=== PATIENT | male | born 1990 | race Caucasian/White ===

== ENCOUNTER 2019-12-19 16:55 | Emergency (ER) | payer MEDICARE, MEDICAID, SELFPAY ==
[2019-12-19 17:34] VITALS: BP 135/90; PULSE 83; RESP 18; TEMP 36.8; O2SAT 95; BMI 27.7
[2019-12-19 17:37] VITALS: BP 118/87; PULSE 87; RESP 18; TEMP 36.9; O2SAT 99
--- NOTE | 2019-12-19 17:41 | ED.PSYCH ---
HPI - Psych General Chief Complaint: Psychiatric Symptoms <Adriano Bucio NP - Last Filed: 12/20/19 02:04> Stated Complaint: HEROIN OVERDOSE <Adriano Bucio NP - Last Filed: 12/20/19 02:04> Time Seen by Provider: 12/19/19 17:41 <Adriano Bucio NP - Last Filed: 12/20/19 02:04> Source: patient and EMS <Adriano Bucio NP - Last Filed: 12/20/19 02:04> Mode of arrival: EMS <Adriano Bucio NP - Last Filed: 12/20/19 02:04> Limitations: no limitations <Adriano Bucio NP - Last Filed: 12/20/19 02:04> History of Present Illness HPI Narrative: 29-year-old male with past medical history significant for anxiety disorder, depressive disorder, bipolar disorder, MS and substance abuse who reports to me that he will use IV heroin once every several weeks to a month for recreational purposes as well as cocaine may be every 6 months presents today via EMS on a [address] with EMS and PD from home with complaint of overdose on heroin. Per crisis counselor with PD apparently patient had some verbal altercations and made suicidal statements throughout the day to the family and then subsequently used heroin and OD'd concerned that he may have done this intentionally. Patient upon arrival openly admits that he uses heroin occasionally eats for recreational purposes and to get high and it was not a suicidal attempt. He on arrival offers no medical complaints. He was given 4 mg of Narcan. He is nontoxic appearing. Vitals are stable. Offers no medical complaints. <Adriano Bucio NP - Last Filed: 12/20/19 02:04> MD complaint: suicidal ideation <Adriano Bucio NP - Last Filed: 12/20/19 02:04> Associated psychiatric symptoms: none <Adriano Bucio NP - Last Filed: 12/20/19 02:04> Associated symptoms: denies other symptoms <Adriano Bucio NP - Last Filed: 12/20/19 02:04> Treatments prior to arrival: placed on mental health hold and other ( Given Narcan by PD/EMS) <Adriano Bucio NP - Last Filed: 12/20/19 02:04> Related Data Home Medications: Home Medications Medication Instructions Recorded Confirmed albuterol sulfate [ProAir HFA] 2 puff PO QID 12/19/19 12/19/19 clonazepam 1 tab PO BID 12/19/19 12/19/19 gabapentin 2 tab PO TID 12/19/19 12/19/19 lithium carbonate 2 tab PO DAILY 12/19/19 12/19/19 lorazepam 1 tab PO TID PRN 12/19/19 12/19/19 venlafaxine 1 cap PO DAILY 12/19/19 12/19/19 venlafaxine 1 cap PO DAILY 12/19/19 12/19/19 <Adriano Bucio NP - Last Filed: 12/20/19 02:04> Allergies/Adverse Reactions: Allergies Allergy/AdvReac Type Severity Reaction Status Date / Time amoxicillin [AMOXICILLIN] Allergy Mild HIVES Verified 12/19/19 17:37 Penicillins [PENICILLINS] Allergy Mild HIVES Verified 12/19/19 17:37 <Adriano Bucio NP - Last Filed: 12/20/19 02:04> Review of Systems Review of Systems: Constitutional: No Weight loss, No Fever, No Chills, No Night Sweats, No Fatigue, No Malaise ENT/Mouth: No Hearing loss, No Ear Pain, No Nasal Congestion, No Sinus Pain, No Hoarseness, No sore throat, No Rhinorrhea, No Swallowing Difficulty Eyes: No Eye Pain, No Swelling, No Redness, No Foreign Body, No Discharge, No Vision Changes Cardiovascular: No Chest Pain, No SOB, No Dyspnea on Exertion, No Orthopnea, No Edema, No Palpitations Respiratory: No Cough, No Sputum, No Wheezing, No Smoke Exposure, No Dyspnea Gastrointestinal: No Nausea, No Vomiting, No Diarrhea, No Constipation, No abdominal Pain, No Hematochezia, No Melena Genitourinary: no irregular bleeding, No Dysuria, No Urinary Frequency, No Hematuria, No Urinary Incontinence, No Urgency, No Flank Pain, No Urinary Flow Changes, No Hesitancy Musculoskeletal: No joint pain, No Myalgias, No Joint Swelling Skin: No Skin Lesions, No rash Neuro: No Weakness, No Numbness, No Paresthesias, No Loss of Consciousness, No Dizziness, No Headache Psych: No Anxiety/Panic, No Depression, No SI/HI/AH/VH---but section 12 and apparently made statements to family Heme/Lymph: No Bruising, No Bleeding,No Lymphadenopathy Endocrine: No Polyuria, No Polydipsia, No Temperature Intolerance <Adriano Bucio NP - Last Filed: 12/20/19 02:04> Yes all other systems are reviewed and are negative <Adriano Bucio NP - Last Filed: 12/20/19 02:04> FOR[facility], [facility] Past Medical History Attestation statement: The following information was validated with the patient. <Adriano Bucio NP - Last Filed: 12/20/19 02:04> Medical History: Medical History (Updated 12/19/19 @ 17:36 by Juanita Lucas RN) Asthma Multiple sclerosis <Adriano Bucio NP - Last Filed: 12/20/19 02:04> Social History Social History: Social History Alcohol intake: unknown Smoking Status: Unknown if ever smoked Use of substances other than those prescribed or required for medical reasons: Yes Substance Use Type: Crack/Cocaine, Marijuana and Opiates Substance Use Frequency: Daily Last Used Substance: Just Prior to Admission Any prior treatment program specific to substance use: Yes (Narcan) Advance Directives: No Advance Directives Information Provided: Yes <Adriano Bucio NP - Last Filed: 12/20/19 02:04> Physical Exam Vital Signs: Vital Signs: Vital Signs Temp Pulse Resp BP Pulse Ox 12/19/19 17:37 98.4 F 87 18 118/87 99 12/19/19 17:34 98.3 F 83 18 135/90 H 95 Body Mass Index 27.7 Reviewed <Adriano Bucio NP - Last Filed: 12/20/19 02:04> Vital Signs: Vital Signs Temp Pulse Resp BP Pulse Ox 12/19/19 17:37 98.4 F 87 18 118/87 99 12/19/19 17:34 98.3 F 83 18 135/90 H 95 Body Mass Index 27.7 <LIS Engel - Last Filed: 12/20/19 08:27> Const: General: cooperative and healthy appearing; No acute distress or intoxicated appearing <Adriano Bucio NP - Last Filed: 12/20/19 02:04> Nutritional Appearance: average body habitus <Adriano Bucio NP - Last Filed: 12/20/19 02:04> Orientation/consciousness: patient oriented x3 <[facility] Last Filed: 12/20/19 02:04> HENMT: Head: Yes normal to inspection <[facility] Last Filed: 12/20/19 02:04> Ears: hearing grossly normal bilaterally <[facility] Last Filed: 12/20/19 02:04> Eyes: General: appearance normal, both eyes and all related structures <[facility] Last Filed: 12/20/19 02:04> Visual Maria: normal visual maria by confrontation <[facility] Last Filed: 12/20/19 02:04> Neck: Neck: Yes normal visual inspection, No positive Brudzinski's sign, No positive Kernig's sign and No tender <[facility] Last Filed: 12/20/19 02:04> Thyroid: Thyroid normal <[facility] Last Filed: 12/20/19 02:04> Chest: Chest palpation & inspection: normal inspection of the chest <[facility] Last Filed: 12/20/19 02:04> Resp: Effort & Inspection: normal respiratory effort <[facility] Last Filed: 12/20/19 02:04> Cardio: Jugular venous distension: no JVD <[facility] Last Filed: 12/20/19 02:04> GI: Inspection: Yes normal to inspection <[facility] Last Filed: 12/20/19 02:04> Percussion: Yes normal to percussion <[facility] Last Filed: 12/20/19 02:04> Auscultation: normal bowel sounds <[facility] Last Filed: 12/20/19 02:04> : General: Yes no CVA tenderness <[facility] Last Filed: 12/20/19 02:04> Back/Spine/Pelvis: Back: no CVA tenderness <[facility] Last Filed: 12/20/19 02:04> Skin: General skin exam: no rashes or lesions noted <[facility] [employer] - Last Filed: 12/20/19 02:04> Neuro: General: patient oriented x3 <Adriano Bucio NP - Last Filed: 12/20/19 02:04> Extrem: General: Yes normal to inspection <Adriano Bucio NP - Last Filed: 12/20/19 02:04> Course Course Course Narrative: Labs show leukocytosis 15.4 likely from the OD/polysubstance otherwise no signs or symptoms of infectious pathology. Urine tox screen positive for polysubstance including opiates, benzos, cocaine and marijuana. Has remained calm cooperative here. Offers no complaints. Eating drinking. At this time medically clear for psychiatric evaluation. <Adriano Bucio NP - Last Filed: 12/20/19 02:04> patient presently not in any distress. Patient is awaiting [facility] evaluation. Time 08:26 <LIS Engel - Last Filed: 12/20/19 08:27> Reevaluation(s) Reevaluation #1: [id number] Sign-out night team pending psychiatric evaluation. <Adriano Bucio NP - Last Filed: 12/20/19 02:04> MDM - Psych MDM Narrative Medical decision making narrative: In review 29-year-old male with above history including anxiety, depression, bipolar disorder, MS with polysubstance use presents via EMS with overdose question intentional versus recreational use he denies any SI or HI to me states this was strictly a recreation used to get high. He does come with EMS/ [facility] on [address] as he apparently been making suicidal statements to the family. He was hyperverbal and verbally assaultive toward staff upon arrival however he is much more calmer and redirected upon my interview. Agreeable with labs and psychiatric consultation. <Adriano Bucio NP - Last Filed: 12/20/19 02:04> Differential Diagnosis Differential diagnosis: Likely acute psychosis, suicidal ideation, bipolar disorder, depression, drug-induced psychotic disorder, acute anxiety, overdose and mood disorder; Unlikely post-traumatic stress disorder, opposition defined disorder, attention deficit disorder, attention deficit hyperactivity disorder, autism, substance abuse and schizoaffective disorder <Adriano Bucio NP - Last Filed: 12/20/19 02:04> Restraints Face to Face Assessment: Face to Face Assessment: Current Situation: After assessment of the patient, a review of the pertinent medical record and a discussion with nursing staff, I feel the patient requires a restrain intervention. Reaction To: [] Medical Condition: [] Behavioral State: [] Continued Need: [] <Adriano Bucio NP - Last Filed: 12/20/19 02:04> Lab Data Result diagrams: : 12/19/19 19:31 12/19/19 19:32 <Adriano Bucio NP - Last Filed: 12/20/19 02:04> Labs: Lab Results 12/19/19 12/19/19 12/19/19 Range/Units 19:31 19:32 19:32 WBC 15.4 H (4.8-10.8) X10*3/uL RBC 4.90 (4.60-5.80) X10*6/uL Hgb 13.4 L (14.0-18.0) g/dl Hct 42.2 (42-52) % MCV 86.1 (80-98) fL MCH 27.3 (27.0-33.0) pg MCHC 31.8 (31.0-36.0) g/dl RDW 14.3 (11.0-16.0) % Plt Count 372 (160-400) X10*3/uL MPV 10.9 (9.4-12.4) fL Immature Gran % (Auto) 0.3 (0.0-0.4) % Neut % (Auto) 82.5 H (45-73) % Lymph % (Auto) 8.9 L (20-40) % [place] % (Auto) 6.8 (2-11) % Eos % (Auto) 1.4 (0-4) % Baso % (Auto) 0.1 (0-2) % Lymph # (Auto) 1.4 (1.2-4.9) X10*3/uL [place] # (Auto) 1.1 (0.1-1.2) X10*3/uL Eos # (Auto) 0.2 (0.0-0.4) X10*3/uL Baso # (Auto) 0.0 (0.0-0.2) X10*3/uL Abs Immat Gran (auto) 0.05 H (0.00-0.03) X10*3/uL Absolute Neuts (auto) 12.7 H (2.0-8.3) X10*3/uL Absolute Nucleated RBC 0.000 (0.0-0.012) X10*3/uL Nucleated RBC % (auto) 0.0 (0.0-0.2) /100WBC Sodium 141 (135-145) mmol/L Potassium 4.0 (3.3-5.1) mmol/l Chloride 107 (96-108) mmol/L Carbon Dioxide 25 (22-29) mmol/L Anion Gap 13 (12-20) BUN 7 L (9-16) mg/dL Creatinine 0.87 (0.5-1.4) mg/dL Estim Creat Clear Calc 139.0 Estimated GFR > 60 Random Glucose 101 (60-115) mg/dL Calcium 9.0 (8.4-10.2) mg/dL Total Bilirubin 0.6 (0.0-1.0) mg/dL AST 18 (5-37) U/L ALT 18 (0-40) U/L Alkaline Phosphatase 70 (39-117) U/L Total Protein 6.9 (6.5-8.0) g/dL Albumin 4.7 (3.5-5.0) g/dL Urine Color Urine Appearance Urine pH (5.0-8.0) Ur Specific [place] (1.005-1.025) Urine Protein (NEG-TRACE) MG/DL Urine Glucose (UA) (NEG) MG/DL Urine Ketones (NEG) MG/DL Urine Blood (NEG) Urine Nitrite (NEG) Ur Leukocyte Esterase (NEG) Urine RBC (0) /HPF Urine WBC (0-4) /HPF Ur Squamous Epith Cells /LPF Urine Bacteria /LPF Urine Opiates Screen (Not Detect) Ur Barbiturates Screen (Not Detect) Ur Phencyclidine Scrn (Not Detect) Ur Amphetamines Screen (Not Detect) U Benzodiazepines Scrn (Not Detect) [place] (0.60-1.20) mmol/L Urine Cocaine Screen (Not Detect) U Marijuana (THC) Screen (Not Detect) Ethyl Alcohol < 10 mg/dL 12/19/19 12/19/19 12/19/19 Range/Units 19:32 19:32 19:32 WBC (4.8-10.8) X10*3/uL RBC (4.60-5.80) X10*6/uL Hgb (14.0-18.0) g/dl Hct (42-52) % MCV (80-98) fL MCH (27.0-33.0) pg MCHC (31.0-36.0) g/dl RDW (11.0-16.0) % Plt Count (160-400) X10*3/uL MPV (9.4-12.4) fL Immature Gran % (Auto) (0.0-0.4) % Neut % (Auto) (45-73) % Lymph % (Auto) (20-40) % [place] % (Auto) (2-11) % Eos % (Auto) (0-4) % Baso % (Auto) (0-2) % Lymph # (Auto) (1.2-4.9) X10*3/uL [place] # (Auto) (0.1-1.2) X10*3/uL Eos # (Auto) (0.0-0.4) X10*3/uL Baso # (Auto) (0.0-0.2) X10*3/uL Abs Immat Gran (auto) (0.00-0.03) X10*3/uL Absolute Neuts (auto) (2.0-8.3) X10*3/uL Absolute Nucleated RBC (0.0-0.012) X10*3/uL Nucleated RBC % (auto) (0.0-0.2) /100WBC Sodium (135-145) mmol/L Potassium (3.3-5.1) mmol/l Chloride (96-108) mmol/L Carbon Dioxide (22-29) mmol/L Anion Gap (12-20) BUN (9-16) mg/dL Creatinine (0.5-1.4) mg/dL Estim Creat Clear Calc Estimated GFR Random Glucose (60-115) mg/dL Calcium (8.4-10.2) mg/dL Total Bilirubin (0.0-1.0) mg/dL AST (5-37) U/L ALT (0-40) U/L Alkaline Phosphatase (39-117) U/L Total Protein (6.5-8.0) g/dL Albumin (3.5-5.0) g/dL Urine Color YELLOW Urine Appearance CLEAR Urine pH 6.5 (5.0-8.0) Ur Specific [place] 1.015 (1.005-1.025) Urine Protein 1+ H (NEG-TRACE) MG/DL Urine Glucose (UA) NEG (NEG) MG/DL Urine Ketones NEG (NEG) MG/DL Urine Blood NEG (NEG) Urine Nitrite NEG (NEG) Ur Leukocyte Esterase NEG (NEG) Urine RBC 0 (0) /HPF Urine WBC 0 (0-4) /HPF Ur Squamous Epith Cells 1+ /LPF Urine Bacteria 1+ /LPF Urine Opiates Screen POSITIVE H (Not Detect) Ur Barbiturates Screen Not Detected (Not Detect) Ur Phencyclidine Scrn Not Detected (Not Detect) Ur Amphetamines Screen Not Detected (Not Detect) U Benzodiazepines Scrn POSITIVE H (Not Detect) [place] 0.41 L (0.60-1.20) mmol/L Urine Cocaine Screen POSITIVE H (Not Detect) U Marijuana (THC) Screen POSITIVE H (Not Detect) Ethyl Alcohol mg/dL <Adriano Bucio NP - Last Filed: 12/20/19 02:04> Lab Results 12/19/19 12/19/19 12/19/19 Range/Units 19:31 19:32 19:32 WBC 15.4 H (4.8-10.8) X10*3/uL RBC 4.90 (4.60-5.80) X10*6/uL Hgb 13.4 L (14.0-18.0) g/dl Hct 42.2 (42-52) % MCV 86.1 (80-98) fL MCH 27.3 (27.0-33.0) pg MCHC 31.8 (31.0-36.0) g/dl RDW 14.3 (11.0-16.0) % Plt Count 372 (160-400) X10*3/uL MPV 10.9 (9.4-12.4) fL Immature Gran % (Auto) 0.3 (0.0-0.4) % Neut % (Auto) 82.5 H (45-73) % Lymph % (Auto) 8.9 L (20-40) % [place] % (Auto) 6.8 (2-11) % Eos % (Auto) 1.4 (0-4) % Baso % (Auto) 0.1 (0-2) % Lymph # (Auto) 1.4 (1.2-4.9) X10*3/uL [place] # (Auto) 1.1 (0.1-1.2) X10*3/uL Eos # (Auto) 0.2 (0.0-0.4) X10*3/uL Baso # (Auto) 0.0 (0.0-0.2) X10*3/uL Abs Immat Gran (auto) 0.05 H (0.00-0.03) X10*3/uL Absolute Neuts (auto) 12.7 H (2.0-8.3) X10*3/uL Absolute Nucleated RBC 0.000 (0.0-0.012) X10*3/uL Nucleated RBC % (auto) 0.0 (0.0-0.2) /100WBC Sodium 141 (135-145) mmol/L Potassium 4.0 (3.3-5.1) mmol/l Chloride 107 (96-108) mmol/L Carbon Dioxide 25 (22-29) mmol/L Anion Gap 13 (12-20) BUN 7 L (9-16) mg/dL Creatinine 0.87 (0.5-1.4) mg/dL Estim Creat Clear Calc 139.0 Estimated GFR > 60 Random Glucose 101 (60-115) mg/dL Calcium 9.0 (8.4-10.2) mg/dL Total Bilirubin 0.6 (0.0-1.0) mg/dL AST 18 (5-37) U/L ALT 18 (0-40) U/L Alkaline Phosphatase 70 (39-117) U/L Total Protein 6.9 (6.5-8.0) g/dL Albumin 4.7 (3.5-5.0) g/dL Urine Color Urine Appearance Urine pH (5.0-8.0) Ur Specific [place] (1.005-1.025) Urine Protein (NEG-TRACE) MG/DL Urine Glucose (UA) (NEG) MG/DL Urine Ketones (NEG) MG/DL Urine Blood (NEG) Urine Nitrite (NEG) Ur Leukocyte Esterase (NEG) Urine RBC (0) /HPF Urine WBC (0-4) /HPF Ur Squamous Epith Cells /LPF Urine Bacteria /LPF Urine Opiates Screen (Not Detect) Ur Barbiturates Screen (Not Detect) Ur Phencyclidine Scrn (Not Detect) Ur Amphetamines Screen (Not Detect) U Benzodiazepines Scrn (Not Detect) [place] (0.60-1.20) mmol/L Urine Cocaine Screen (Not Detect) U Marijuana (THC) Screen (Not Detect) Ethyl Alcohol < 10 mg/dL 12/19/19 12/19/19 12/19/19 Range/Units 19:32 19:32 19:32 WBC (4.8-10.8) X10*3/uL RBC (4.60-5.80) X10*6/uL Hgb (14.0-18.0) g/dl Hct (42-52) % MCV (80-98) fL MCH (27.0-33.0) pg MCHC (31.0-36.0) g/dl RDW (11.0-16.0) % Plt Count (160-400) X10*3/uL MPV (9.4-12.4) fL Immature Gran % (Auto) (0.0-0.4) % Neut % (Auto) (45-73) % Lymph % (Auto) (20-40) % [place] % (Auto) (2-11) % Eos % (Auto) (0-4) % Baso % (Auto) (0-2) % Lymph # (Auto) (1.2-4.9) X10*3/uL [place] # (Auto) (0.1-1.2) X10*3/uL Eos # (Auto) (0.0-0.4) X10*3/uL Baso # (Auto) (0.0-0.2) X10*3/uL Abs Immat Gran (auto) (0.00-0.03) X10*3/uL Absolute Neuts (auto) (2.0-8.3) X10*3/uL Absolute Nucleated RBC (0.0-0.012) X10*3/uL Nucleated RBC % (auto) (0.0-0.2) /100WBC Sodium (135-145) mmol/L Potassium (3.3-5.1) mmol/l Chloride (96-108) mmol/L Carbon Dioxide (22-29) mmol/L Anion Gap (12-20) BUN (9-16) mg/dL Creatinine (0.5-1.4) mg/dL Estim Creat Clear Calc Estimated GFR Random Glucose (60-115) mg/dL Calcium (8.4-10.2) mg/dL Total Bilirubin (0.0-1.0) mg/dL AST (5-37) U/L ALT (0-40) U/L Alkaline Phosphatase (39-117) U/L Total Protein (6.5-8.0) g/dL Albumin (3.5-5.0) g/dL Urine Color YELLOW Urine Appearance CLEAR Urine pH 6.5 (5.0-8.0) Ur Specific [place] 1.015 (1.005-1.025) Urine Protein 1+ H (NEG-TRACE) MG/DL Urine Glucose (UA) NEG (NEG) MG/DL Urine Ketones NEG (NEG) MG/DL Urine Blood NEG (NEG) Urine Nitrite NEG (NEG) Ur Leukocyte Esterase NEG (NEG) Urine RBC 0 (0) /HPF Urine WBC 0 (0-4) /HPF Ur Squamous Epith Cells 1+ /LPF Urine Bacteria 1+ /LPF Urine Opiates Screen POSITIVE H (Not Detect) Ur Barbiturates Screen Not Detected (Not Detect) Ur Phencyclidine Scrn Not Detected (Not Detect) Ur Amphetamines Screen Not Detected (Not Detect) U Benzodiazepines Scrn POSITIVE H (Not Detect) [place] 0.41 L (0.60-1.20) mmol/L Urine Cocaine Screen POSITIVE H (Not Detect) U Marijuana (THC) Screen POSITIVE H (Not Detect) Ethyl Alcohol mg/dL <LIS Engel - Last Filed: 12/20/19 08:27> Discharge Plan Discharge Prescriptions: No Action venlafaxine 75 mg capsule,extended release 24hr 1 cap PO DAILY RF: 0 gabapentin 600 mg tablet 2 tab PO TID RF: 0 clonazepam 1 mg tablet 1 tab PO BID RF: 0 venlafaxine 150 mg capsule,extended release 24hr 1 cap PO DAILY RF: 0 lithium carbonate 450 mg tablet extended release 2 tab PO DAILY RF: 0 lorazepam 1 mg tablet 1 tab PO TID PRN (Reason: anxiety) RF: 0 albuterol sulfate [ProAir HFA] 90 mcg/actuation HFA aerosol inhaler 2 puff PO QID RF: 0 <Adriano Bucio NP - Last Filed: 12/20/19 02:04>
--- NOTE | 2019-12-19 18:00 | ECG_ITS ---
Test Reason : OVERDOSE Blood Pressure : / mmHG Vent. Rate : 075 BPM Atrial Rate : 075 BPM P-R Int : 144 ms QRS Dur : 084 ms QT Int : 392 ms P-R-T Axes : 047 049 043 degrees QTc Int : 437 ms Normal sinus rhythm Early repolarization Normal ECG When compared with ECG of 08-MAR-2018 00:41, Nonspecific T wave abnormality no longer evident in Lateral leads Heart rate has decreased Referred By: Adriano Bucio Electronically Signed By:STANLEY LEBRON MD
--- NOTE | 2019-12-19 19:21 | PC.NURSE ---
PT TRIAGED AFTER [facility] GAVE 4MG NARCAN IN. PER FAMILY, PT MAKOING SI STATEMENTS ALL DAY TODAY. SECTION 12 COMPLETED BY [facility]. PT VERY ABRASIVE UPON ARRIVAL. EVENTUALLY REASSURED. AGREEABLE TO TREATMENT. LABS TO BE COLLECTED.
[2019-12-19 19:41] LABS: Glucose Urine UA NEG (NEG); Leukocyte Esterase Urine NEG (NEG); Nitrite Urine NEG (NEG); PH 6.5 (5.0-8.0); Specific Gravity - Urine 1.015 (1.005-1.025); Urine Blood NEG (NEG); Urine Ketones NEG (NEG); Urine Protein 1+ MG/DL (NEG-TRACE)
[2019-12-19 19:43] LABS: Appearance Urine CLEAR; Color Urine YELLOW
[2019-12-19 19:44] LABS: MANUAL DIFF FLAG NO
--- NOTE | 2019-12-19 19:45 | PC.NURSE ---
labs drawn by straight stick to lab. pt up to restroom with steady even gait for urine sample to lab. pt remains with sitter at bedside. pt awaiting for dispo to pod. Pt remains calm and cooperative in hallway. Awaiting pending orders.
[2019-12-19 19:46] LABS: Bacteria Urine 1+ /LPF; RBC Urine 0 /HPF (0); Squamous Epithelial Cell Urine 1+ /LPF; WBC Urine 0 /HPF (0-4)
[2019-12-19 19:46] LABS: Basophils Percent Auto 0.1 % (0-2); Eosinophils Absolute Auto 0.2 X10*3/uL (0.0-0.4); Eosinophils Percent Auto 1.4 % (0-4); Hematocrit 42.2 % (42-52); Hemoglobin 13.4 g/dl (14.0-18.0); Imm Gran Abs Auto 0.05 X10*3/uL (0.00-0.03); Imm Gran Pct Auto 0.3 % (0.0-0.4); Lymphocytes Absolute Auto 1.4 X10*3/uL (1.2-4.9); Lymphocytes Percent Auto 8.9 % (20-40); Mean Corpuscular HGB Conc 31.8 g/dl (31.0-36.0); Mean Corpuscular Hemoglobin 27.3 pg (27.0-33.0); Mean Corpuscular Volume 86.1 fL (80-98); Mean Platelet Volume 10.9 fL (9.4-12.4); Monocytes Absolute Auto 1.1 X10*3/uL (0.1-1.2); Monocytes Percent Auto 6.8 % (2-11); Neutrophils Absolute Auto 12.7 X10*3/uL (2.0-8.3); Neutrophils Percent Auto 82.5 % (45-73); Platelet Count 372 X10*3/uL (160-400); Red Cell Distribution Width 14.3 % (11.0-16.0); White Blood Count 15.4 X10*3/uL (4.8-10.8)
[2019-12-19 20:00] LABS: Lithium 0.41 mmol/L (0.60-1.20)
[2019-12-19 20:04] LABS: Ethanol < 10 mg/dL
[2019-12-19 20:10] LABS: Amphetamine Screen Urine Not Detected (Not Detect); Barbiturates, Urine Not Detected (Not Detect); Benzodiazepines Screen Urine POSITIVE (Not Detect); Cannabinoid Screen Urine POSITIVE (Not Detect); Cocaine Screen Urine POSITIVE (Not Detect); Opiate Screen Urine POSITIVE (Not Detect); Phencyclidine Screen Urine Not Detected (Not Detect)
[2019-12-19 20:19] LABS: Alanine Aminotransferase 18 U/L (0-40); Albumin Level 4.7 g/dL (3.5-5.0); Alkaline Phosphatase 70 U/L (39-117); Anion Gap 13 (12-20); Aspartate Amino Transferase 18 U/L (5-37); Bilirubin Total 0.6 mg/dL (0.0-1.0); Blood Urea Nitrogen 7 mg/dL (9-16); Carbon Dioxide 25 mmol/L (22-29); Chloride 107 mmol/L (96-108); Estimated Glomerular Filt Rate > 60; Glucose Random 101 mg/dL (60-115); Sodium 141 mmol/L (135-145); Total Protein 6.9 g/dL (6.5-8.0)
--- NOTE | 2019-12-19 20:52 | PC.NURSE ---
PT REMAINS CALM AND COPERATIVE IN HALLWAY WITH SITTER AT BEDSIDE. PT AWAITING FOR PENDING ORDERS FOR D/C.
--- NOTE | 2019-12-19 20:59 | PC.NURSE ---
REPORT GIVEN TO POD. PT AMBULATES TO POD WITH SECURITY.
--- NOTE | 2019-12-19 21:53 | PC.NURSE ---
PT asked to look at cell phone but unable to get it out of decon. PT is now on the unit phone talking to his mother. Calm and collected.
[2019-12-19] MEDS: Gabapentin 600 MG TABLET 1200 MG PO (22:32)
[2019-12-19] MEDS: LORazepam 1 MG TABLET PO (22:32)
[2019-12-19] MEDS: clonazePAM 1 MG TABLET PO (22:32)
[2019-12-19] MEDS: Lithium Carbonate ER 450 MG TABLET.ER 900 MG PO (22:32)
--- NOTE | 2019-12-19 22:39 | PC.NURSE ---
PT stated that he takes his lithium at night. Med was given tonight and scheduled time was amended by provider per PT's statement.
--- NOTE | 2019-12-20 07:10 | PC.NURSE ---
Report received from [facility]. Pt resting, resp unlabored.
[2019-12-20 08:54] VITALS: BP 91/56; PULSE 79; RESP 18; TEMP 37; O2SAT 97
[2019-12-20] MEDS: Venlafaxine HCl ER 150 MG CAP.ER.24H PO (09:00)
[2019-12-20] MEDS: Venlafaxine HCl ER 75 MG CAP.ER.24H PO (09:00)
[2019-12-20] MEDS: Gabapentin 600 MG TABLET 1200 MG PO (09:01)
--- NOTE | 2019-12-20 09:23 | PC.NURSE ---
[facility] called- [facility] stating they will send staff to see him shortly.
--- NOTE | 2019-12-20 10:01 | PC.NURSE ---
Late entry 0900: Provider notified of BP- clonopin held at this time, pt brought water and encouraged to drink fluids.
--- NOTE | 2019-12-20 10:28 | PC.NURSE ---
Care team aware, [facility] called but not yet on site.
[2019-12-20 10:34] VITALS: BP 116/59; PULSE 61; RESP 61; TEMP 36.8; O2SAT 96
--- NOTE | 2019-12-20 10:58 | PC.NURSE ---
Care team in to evaluate pt
[2019-12-20 11:15] VITALS: BP 136/93; PULSE 70; O2SAT 96
[2019-12-20] MEDS: clonazePAM 1 MG TABLET PO (11:18)
--- NOTE | 2019-12-20 11:22 | PC.NURSE ---
Pt seen by Care team, plan is to discharge w/ recommendations/support to see therapist and psychiatrist. Pt in agreement w/ plan, denies SI, states he is just trying to get high, aware of risks. States he does not use every day so does not feel detox is appropriate.
== END 2019-12-20 13:00 | disposition home or self-care (01) ==
PROVIDERS: Nurse Practitioner Primary Care; Emergency Provider Internal Medicine; PCP Family Medicine
DX: T40.1X1A Poisoning by heroin, accidental (unintentional), initial encounter (principal); F11.10 Opioid abuse, uncomplicated; Y92.9 Unspecified place or not applicable; Z79.899 Other long term (current) drug therapy
CPT/HCPCS: 36415; 80053; 80178; 80307; 80320; 81001; 85025; 93005; 99285

== ENCOUNTER 2019-12-27 04:47 | Emergency (ER) | payer MEDICARE, MEDICAID, SELFPAY ==
[2019-12-27 04:56] VITALS: BP 115/76; BP 138/72; PULSE 102; PULSE 96; RESP 14; TEMP 36.9; O2SAT 95; O2SAT 96; BMI 27.1
--- NOTE | 2019-12-27 05:20 | ED_ITS ---
HPI - Overdose General Chief Complaint: Overdose Stated Complaint: overdose Time Seen by Provider: 12/27/19 04:57 Source: patient Mode of arrival: EMS Limitations: no limitations History of Present Illness HPI Narrative: This is a 29-year-old male who is brought in by EMS after his mother administered 4 mg of Narcan after patient accidentally overdosed on fentanyl which he thought was heroin. He denies any ideas of wanting to kill himself or anybody else and denies any depression or hearing voices. He is interested in getting psychiatry and therapy help but is not interested in detox at this time. Related Data Home Medications Medication Instructions Recorded Confirmed albuterol sulfate [ProAir HFA] 2 puff PO QID 12/19/19 12/19/19 clonazepam 1 tab PO BID 12/19/19 12/19/19 gabapentin 2 tab PO TID 12/19/19 12/19/19 lithium carbonate 2 tab PO DAILY 12/19/19 12/19/19 lorazepam 1 tab PO TID PRN 12/19/19 12/19/19 venlafaxine 1 cap PO DAILY 12/19/19 12/19/19 venlafaxine 1 cap PO DAILY 12/19/19 12/19/19 Allergies Allergy/AdvReac Type Severity Reaction Status Date / Time amoxicillin [AMOXICILLIN] Allergy Mild HIVES Verified 12/19/19 17:37 Penicillins [PENICILLINS] Allergy Mild HIVES Verified 12/19/19 17:37 Review of Systems Review of Systems: Pertinent positives and negatives as stated in HPI 10 point review of systems is otherwise negative. [facility] Past Medical History Source: nursing notes reviewed Medical History Asthma Multiple sclerosis Social History Social History Alcohol intake: never Smoking Status: Never smoker Use of substances other than those prescribed or required for medical reasons: Yes Substance Use Type: Heroin Advance Directives: No Advance Directives Information Provided: No Physical Exam Vital Signs: Vital Signs: Last Vital Signs Temp 98.4 F 12/27/19 04:56 Pulse 102 H 12/27/19 04:56 Resp 14 12/27/19 04:56 BP 115/76 12/27/19 04:56 Pulse Ox 95 12/27/19 04:56 Body Mass Index 27.1 VITAL SIGNS: Reviewed. GENERAL: Well developed, well nourished, in no acute distress. HEAD: Normocephalic/atraumatic, EYES: PERRLA, EOMI intact without pain, no nystagmus/pallor/icterus noted EARS: Ext canals without abnormality, TMs non-bulging and non-erythematous NOSE: Nares patent bilateral OROPHARYNX: no oral lesions noted, posterior pharynx clear and non-erythematous without noted tonsillar enlargement/erythema/exudates NECK: Supple, no adenopathy LUNGS: Normal breath sounds. No adventitious sounds or accessory muscle use. SpO2<95> CARDIOVASCULAR: Regular rate and rhythm without noted murmurs, no JVD or lower extremity edema. ABDOMEN: Soft, non-tender, non-distended with bowel sounds. No rigidity. No guarding. No palpable masses or hernias noted MUSCULOSKELETAL: No tenderness, deformities, or effusions noted on gross inspection. EXTREMITIES: No cyanosis, clubbing or edema. SKIN: Inspection of the skin reveals no rashes, ulcerations, jaundice, pallor, or petechiae. NEUROLOGIC: Alert and oriented x 4. Strength and sensation to light touch were grossly intact x 4. Course Course Course Narrative: This is a 29-year-old male with history and clinical presentation consistent with accidental overdose and is not interested in detox at this time. In addition, patient denies any suicidal or homicidal ideation. He will be observed for 2 hours and then discharged with a list of outpatient resources for Psychiatry as well as talk therapy. Patient has been hemodynamically stable, calm, cooperative and still is declining detox at this time or suicidal ideation. Patient was discharged with home Narcan. Discharge Plan Discharge Clinical Impression: Drug overdose Qualifiers: Encounter type: initial encounter Injury intent: accidental or unintentional Qualified Code(s): T50.901A - Poisoning by unspecified drugs, medicaments and biological substances, accidental (unintentional), initial encounter Patient Disposition: Home, Self-Care Instructions: Adult Overdose (ED) Additional Instructions: The patient and/or family acknowledge understanding of results (as applicable), diagnosis, treatment plan, need for follow up, and symptoms that should prompt a return to the emergency room. Prescriptions: No Action venlafaxine 75 mg capsule,extended release 24hr 1 cap PO DAILY RF: 0 gabapentin 600 mg tablet 2 tab PO TID RF: 0 clonazepam 1 mg tablet 1 tab PO BID RF: 0 venlafaxine 150 mg capsule,extended release 24hr 1 cap PO DAILY RF: 0 lithium carbonate 450 mg tablet extended release 2 tab PO DAILY RF: 0 lorazepam 1 mg tablet 1 tab PO TID PRN (Reason: anxiety) RF: 0 albuterol sulfate [ProAir HFA] 90 mcg/actuation HFA aerosol inhaler 2 puff PO QID RF: 0 Referrals: Physician,Unknown [Primary Care Provider] - 2 days
[2019-12-27 06:41] VITALS: BP 110/70; PULSE 86; RESP 14; O2SAT 96
[2019-12-27] MEDS: Naloxone HCl Nasal TAKE HOME 4 MG SPRAY NOSTRILALT (06:41)
== END 2019-12-27 06:55 | disposition home or self-care (01) ==
PROVIDERS: Emergency Provider Student in an Organized Health Care Education/Training Program
DX: T40.1X1A Poisoning by heroin, accidental (unintentional), initial encounter (principal); Y92.9 Unspecified place or not applicable; Z71.51 Drug abuse counseling and surveillance of drug abuser; Z79.899 Other long term (current) drug therapy
CPT/HCPCS: 99284

== ENCOUNTER 2019-12-27 18:48 | Emergency (ER) | payer MEDICARE, MEDICAID, SELFPAY ==
[2019-12-27 18:59] VITALS: BP 148/88; BP 150/100; PULSE 109; PULSE 120; RESP 18; TEMP 36.7; O2SAT 100; BMI 24.3
--- NOTE | 2019-12-27 19:01 | PC.NURSE ---
pt belongings secured with security in [place] at this time. pt in nad. pending provider cuauhtemoc
--- NOTE | 2019-12-27 20:23 | PC.NURSE ---
pt in bed sleeping with equal and non labored rr. pt rr 18 and 100% on ra. pt denies any si/hi. states he was using heroin since 2006 but has increased usage. family found him unresponsive and called 911. 8 mg nasal narcan given pto.
--- NOTE | 2019-12-27 20:33 | PC.NURSE ---
care team to see patient, if patient is serious about detox and getting help pt would need blood drawn, spoke to patient and he states he does not want detox at this time. hayden aware
[2019-12-27 20:34] VITALS: BP 122/46; PULSE 68; RESP 18; O2SAT 99
--- NOTE | 2019-12-27 21:14 | ED_ITS ---
HPI - Overdose General Chief Complaint: ETOH/Substance Use Stated Complaint: overdose Time Seen by Provider: 12/27/19 21:13 Mode of arrival: ambulatory Limitations: no limitations History of Present Illness HPI Narrative: 29-year-old male with history of heroin abuse presenting with overdose after using heroin found by Mom given Ruben. A familiar with necklace from his prior visits he states that he used for recreational purposes to get high and not to harm himself. Similar type behavior in the past actually was here earlier today and I seen him last week. He has had a crisis evaluation today's episode was for recreational purposes and denies any SI or HI. States he does not have a problem and only uses heroin intermittently. Denies any alcohol use. Denies any fall or injury. No medical problems at this time. Nontoxic appearing. MD complaint: accidental overdose Onset (ago): minute(s) Timing confirmed by: family member Treatments Prior to Arrival: narcan (8 mg) Related Data Home Medications Medication Instructions Recorded Confirmed albuterol sulfate [ProAir HFA] 2 puff PO QID 12/19/19 12/19/19 clonazepam 1 tab PO BID 12/19/19 12/19/19 gabapentin 2 tab PO TID 12/19/19 12/19/19 lithium carbonate 2 tab PO DAILY 12/19/19 12/19/19 lorazepam 1 tab PO TID PRN 12/19/19 12/19/19 venlafaxine 1 cap PO DAILY 12/19/19 12/19/19 venlafaxine 1 cap PO DAILY 12/19/19 12/19/19 Allergies Allergy/AdvReac Type Severity Reaction Status Date / Time amoxicillin [AMOXICILLIN] Allergy Mild HIVES Verified 12/27/19 18:58 Penicillins [PENICILLINS] Allergy Mild HIVES Verified 12/27/19 18:58 Review of Systems Review of Systems: Constitutional: No Weight loss, No Fever, No Chills, No Night Sweats, No Fatigue, No Malaise ENT/Mouth: No Hearing loss, No Ear Pain, No Nasal Congestion, No Sinus Pain, No Hoarseness, No sore throat, No Rhinorrhea, No Swallowing Difficulty Eyes: No Eye Pain, No Swelling, No Redness, No Foreign Body, No Discharge, No Vision Changes Cardiovascular: No Chest Pain, No SOB, No Dyspnea on Exertion, No Orthopnea, No Edema, No Palpitations Respiratory: No Cough, No Sputum, No Wheezing, No Smoke Exposure, No Dyspnea Gastrointestinal: No Nausea, No Vomiting, No Diarrhea, No Constipation, No abdominal Pain, No Hematochezia, No Melena Genitourinary: no irregular bleeding, No Dysuria, No Urinary Frequency, No Hematuria, No Urinary Incontinence, No Urgency, No Flank Pain, No Urinary Flow Changes, No Hesitancy Musculoskeletal: No joint pain, No Myalgias, No Joint Swelling Skin: No Skin Lesions, No rash Neuro: No Weakness, No Numbness, No Paresthesias, No Loss of Consciousness, No Dizziness, No Headache Psych: No Anxiety/Panic, No Depression, No SI/HI/AH/VH, No Social Issues Heme/Lymph: No Bruising, No Bleeding,No Lymphadenopathy Endocrine: No Polyuria, No Polydipsia, No Temperature Intolerance Yes all other systems are reviewed and are negative [facility] Past Medical History Attestation statement: The following information was validated with the patient. Medical History Asthma Multiple sclerosis Social History Social History Alcohol intake: never Smoking Status: Never smoker Substance Use Type: Heroin Advance Directives: No Advance Directives Information Provided: No Physical Exam Vital Signs: Vital Signs: Last Vital Signs Temp 98.0 F 12/27/19 18:59 Pulse 68 12/27/19 20:34 Resp 18 12/27/19 20:34 BP 122/46 L 12/27/19 20:34 Pulse Ox 99 12/27/19 20:34 Body Mass Index 24.3 Reviewed Const: General: cooperative and healthy appearing; No acute distress or intoxicated appearing Nutritional Appearance: average body habitus Orientation/consciousness: patient oriented x3 HENMT: Head: Yes normal to inspection Ears: hearing grossly normal bilaterally Eyes: General: appearance normal, both eyes and all related structures Visual Maria: normal visual maria by confrontation Neck: Neck: Yes normal visual inspection and No tender Thyroid: Thyroid normal Chest: Chest palpation & inspection: normal inspection of the chest Resp: Effort & Inspection: normal respiratory effort Cardio: Jugular venous distension: no JVD GI: Inspection: Yes normal to inspection Percussion: Yes normal to percussion Auscultation: normal bowel sounds : General: Yes no CVA tenderness Back/Spine/Pelvis: Back: no CVA tenderness Skin: General skin exam: no rashes or lesions noted Neuro: General: patient oriented x3 Extrem: General: Yes normal to inspection Course Course Course Narrative: Nontoxic upon arrival. Denies any SI or HI. No AH or VH. He is actually quite pleasant and again states that this was for recreational purposes and admits that this can harm him seriously and cause serious organ injury including respiratory depression leading to brain damage and . I have encouraged him to meet with our Suboxone program here to get enrolled in Suboxone and go to detox. He is reluctant to this however he will talk to Care Team. Reevaluation(s) Reevaluation #1: RN approach me states patient requesting to be discharged does not want to go to detox or talk to Care Team. In the meantime [employer] pharmaceutical physician called on the mother's be have requesting information on Section 35 and any way we can hold patient here until he can be Section 35. Aware that I do not have any indications to hold patient against his will here in the emergency room there is no SI or HI. He uses drugs for recreational purposes and detox is voluntary. Again patient is alert and oriented able to make his own decisions. Mother share all phone number phone [phone] will attempt for Section 35 on Monday. Discharge Plan Discharge Clinical Impression: Drug overdose Qualifiers: Encounter type: initial encounter Injury intent: accidental or unintentional Qualified Code(s): T50.901A - Poisoning by unspecified drugs, medicaments and biological substances, accidental (unintentional), initial encounter Patient Disposition: Home, Self-Care Instructions: Adult Overdose (ED), Narcotic Use Disorder (ED) Additional Instructions: Please stop using drugs as this can cause serious harm to health including Please go directly to detox Follow-up with primary care doctor tomorrow Return if any concerns or worsening symptoms Consider starting Suboxone program here at [facility] follow-up instructions provided to program Return if any concerns or worsening symptoms Thank you Prescriptions: No Action venlafaxine 75 mg capsule,extended release 24hr 1 cap PO DAILY RF: 0 gabapentin 600 mg tablet 2 tab PO TID RF: 0 clonazepam 1 mg tablet 1 tab PO BID RF: 0 venlafaxine 150 mg capsule,extended release 24hr 1 cap PO DAILY RF: 0 lithium carbonate 450 mg tablet extended release 2 tab PO DAILY RF: 0 lorazepam 1 mg tablet 1 tab PO TID PRN (Reason: anxiety) RF: 0 albuterol sulfate [ProAir HFA] 90 mcg/actuation HFA aerosol inhaler 2 puff PO QID RF: 0 Referrals: ED Physician,Generic [Emergency Provider] - 2 days (Suboxone program)
--- NOTE | 2019-12-27 21:23 | PC.NURSE ---
pt dishcharged belongings returned to [place]. pts family discussed with jakob veneer trimmer the plan for section 35 due to 5 overdoses in one month
== END 2019-12-27 21:24 | disposition home or self-care (01) ==
PROVIDERS: Emergency Provider Internal Medicine
DX: T40.1X4A Poisoning by heroin, undetermined, initial encounter (principal); Z79.899 Other long term (current) drug therapy
CPT/HCPCS: 99284

== ENCOUNTER 2019-12-30 17:44 | Emergency (ER) | payer MEDICARE, MEDICAID, SELFPAY ==
[2019-12-30 18:15] VITALS: BP 140/98; PULSE 127; RESP 16; TEMP 37.5; O2SAT 95; BMI 27.7
--- NOTE | 2019-12-30 19:01 | MHC.CARE ---
ED charge nurse requested assistance from CARE team for ascertaining the purpose of pt's presentation to the ED, as he arrived with his mother stating that he needed medical clearance and a covid test in order for him to be accepted to [facility]. Pt's mother stated that the pt has overdosed on heroin several times in the last few weeks, and pt reported that he has been struggling with depression and anxiety, isn't on meds, and is hoping to get into treatment and recovery. Pt was previously on suboxone maintenance, and reported that he's interested in resuming. Based on the description of pt's presentation and where pt is hoping to go, it would appear that he is seeking an EATS placement. Pt will require a crisis evaluation in order to determine appropriate level of care.
[2019-12-30 19:07] VITALS: BP 150/86; PULSE 118; RESP 18; TEMP 37.2; O2SAT 95
--- NOTE | 2019-12-30 21:20 | ED.MEDCLEAR ---
HPI - Medical Clearance General Chief complaint: Medical Clearance Stated complaint: Crisis/Medical Clearance Time Seen by Provider: 12/30/19 20:42 Source: patient Mode of arrival: ambulatory Limitations: no limitations History of Present Illness HPI Narrative: Patient states he wants more resources for his depression and opiate dependence. Patient denies any suicidal or homicidal ideation. Patient denies any physical complaints. Related Information Home Medications Medication Instructions Recorded Confirmed albuterol sulfate [ProAir HFA] 2 puff PO QID PRN 12/19/19 12/30/19 clonazepam 1 tab PO BID 12/19/19 12/30/19 gabapentin 600 mg PO DAILY 12/19/19 12/30/19 lithium carbonate 900 mg PO BEDTIME 12/19/19 12/30/19 lorazepam 1 tab PO TID PRN 12/19/19 12/30/19 venlafaxine 75 mg PO DAILY 12/19/19 12/30/19 venlafaxine 150 mg PO DAILY 12/19/19 12/30/19 gabapentin 1,200 mg PO BEDTIME 12/30/19 12/30/19 nicotine 1 patch TRANSDERMAL DAILY 12/30/19 12/30/19 Allergies Allergy/AdvReac Type Severity Reaction Status Date / Time amoxicillin [AMOXICILLIN] Allergy Mild HIVES Verified 12/27/19 18:58 Penicillins [PENICILLINS] Allergy Mild HIVES Verified 12/27/19 18:58 Review of Systems Review of Systems: Yes all other systems are reviewed and are negative Constitutional: Constitutional: Reports as per HPI and Reports no additional constitutional complaints Eyes: Eyes: Reports as per HPI and Reports no additional eye complaints ENT: Reports system reviewed and no additional complaints, except as documented and Reports as per HPI Cardiovascular: Cardiovascular: Reports as per HPI and Reports no additional cardiovascular complaints Respiratory: Respiratory: Reports as per HPI and Reports no additional respiratory complaints Gastrointestinal: Gastrointestinal: Reports as per HPI and Reports no additional gastrointestinal complaints Musculoskeletal: Musculoskeletal: Reports no additional musculoskeletal complaints and Reports as per HPI Psychiatric: Psychiatric: Reports no additional psychiatric complaints and Reports as per HPI Endocrine: Endocrine: Reports no additional endocrine complaints and Reports as per HPI [facility] Past Medical History Medical History Asthma Multiple sclerosis Social History Social History Alcohol intake: never Smoking Status: Never smoker Use of substances other than those prescribed or required for medical reasons: Yes Substance Use Type: Opiates Advance Directives: No Advance Directives Information Provided: Yes Physical Exam Vital Signs: Vital Signs: Last Vital Signs Temp 99 F 12/30/19 23:31 Pulse 84 12/30/19 23:31 Resp 18 12/30/19 23:31 BP 138/89 12/30/19 23:31 Pulse Ox 100 12/30/19 23:31 Body Mass Index 27.7 Const: General: cooperative, healthy appearing, comfortable, no acute distress, well developed, alert and awake Orientation/consciousness: oriented to person, oriented to place, oriented to time and patient oriented x3 HENMT: Head: Yes normal to inspection and Yes No palpable skull fracture present Eyes: General: appearance normal, both eyes and all related structures Visual Maria: normal visual maria by confrontation Neck: Neck: Yes normal visual inspection and Yes full ROM Chest: Chest palpation & inspection: normal inspection of the chest, normal palpation of entire chest wall and no localized rib tenderness Resp: Effort & Inspection: normal respiratory effort and able to speak in complete sentences Cardio: Jugular venous distension: no JVD Heart sounds: S1 normal heart sound present and S2 normal heart sound present GI: Inspection: Yes normal to inspection and No abdominal wall ecchymosis Palpation (GI): Soft to palpation, not firm, nontender, no guarding and not rigid : General: No CVA tenderness and Yes no CVA tenderness Back/Spine/Pelvis: Back: no CVA tenderness, No CVA tenderness and No back tenderness Skin: General skin exam: no rashes or lesions noted Neuro: General: oriented to person, oriented to place, oriented to time, patient oriented x3, gait normal and CN's II-XI intact bilaterally Cranial nerves: Yes CN's II-XII intact bilaterally Extrem: General: Yes normal to inspection and Yes full ROM Psych: Appearance: grossly normal and well kempt Course Course Course Narrative: Patient is not suicidal/ homicidal. Patient will be evaluated by N in for possible leads bed placement. Reevaluation(s) Reevaluation #1: [facility] consulted evaluated patient and will try to organize EATS bed for patient. . Time: 21:36 Reevaluation #2: [facility] office 365 consultant states she gave patient contact information with [facility] for him to follow up tomorrow morning for his eats beds for opiate dependence and depression. She states patient is safe for discharge. Patient presently denies any suicidal homicidal ideation. Time: 22:10 Reevaluation #3: as per motherm she prefers [facility] for her son. YARITZA contacted [facility] and stated patient could come at 06:00 for evaluation to see if will be accepted into facility. patient can be discharge. Time: 22:30 MDM - Medical Clearance MDM Narrative Medical decision making narrative: opiate dependence. Depression Discharge Plan Discharge Clinical Impression: Opioid dependence, Depression Patient Disposition: Home, Self-Care Instructions: Depression (ED), Opioid Use Disorder (ED) Additional Instructions: return to the ED immediately for any suicidal / homicidal ideation, physical complaints, auditory / visual hallucinations, or any other concerning symptoms. Please follow-up with [facility] tomorrow for a bed for detox from opioid and psychiatric help for depression Prescriptions: No Action venlafaxine 75 mg capsule,extended release 24hr 75 mg PO DAILY RF: 0 gabapentin 600 mg tablet 600 mg PO DAILY RF: 0 clonazepam 1 mg tablet 1 tab PO BID RF: 0 venlafaxine 150 mg capsule,extended release 24hr 150 mg PO DAILY RF: 0 lithium carbonate 450 mg tablet extended release 900 mg PO BEDTIME RF: 0 lorazepam 1 mg tablet 1 tab PO TID PRN (Reason: anxiety) RF: 0 albuterol sulfate [ProAir HFA] 90 mcg/actuation HFA aerosol inhaler 2 puff PO QID PRN (Reason: Shortness Of Breath Or Wheezing) RF: 0 gabapentin 600 mg Tablet 1,200 mg PO BEDTIME RF: 0 nicotine 14 mg/24 hr Patch 24 Hour 1 patch TRANSDERMAL DAILY RF: 0 Interventions: ED Discharge Assessment Last Done: 12/30/19 22:34 Discharge Date/Time: 12/30/19 23:39 Print Language: Chinese
[2019-12-30 22:01] VITALS: BP 157/95; PULSE 86; RESP 18; TEMP 36.9; O2SAT 100
[2019-12-30] MEDS: LORazepam 1 MG TABLET 2 MG PO (23:29)
[2019-12-30 23:31] VITALS: BP 138/89; PULSE 84; RESP 18; TEMP 37.2; O2SAT 100
--- NOTE | 2019-12-30 23:32 | PC.NURSE ---
Pt's mom called around 10 pm not agreeing for pt to be discharged. Mom kept saying, there is a reserved bed in [facility] for detox program. Mom refused pt to to go to [facility] for detox program. Per mom, it has not worked for him in the past. Talked to [facility] to confirm if [facility] has a room. Per facility, there is no holding bed for patient. [facility] does not admit pt directly from home, and only allows direct admit from hospital. [facility] starts admission process at 0600. Pt is ready to discharge per provider, and 2 mg Ativan PO given upon discharge. Mom will pick pt up.
== END 2019-12-30 23:39 | disposition home or self-care (01) ==
PROVIDERS: Emergency Provider Emergency Medicine; PCP Family Medicine
DX: F11.20 Opioid dependence, uncomplicated (principal); F33.1 Major depressive disorder, recurrent, moderate; Z79.899 Other long term (current) drug therapy
CPT/HCPCS: 99284

== ENCOUNTER → 2020-01-02 10:47 | Outpatient (BNVA) | payer MEDICARE, MEDICAID, SELFPAY | PROVIDERS: Visit Provider Nurse Practitioner Psychiatric/Mental Health | DX: F11.20 Opioid dependence, uncomplicated (principal) | CPT/HCPCS: 80305; 99202; 99211 ==

== ENCOUNTER → 2020-01-10 11:32 | Outpatient (BNVA) | payer MEDICARE, MEDICAID, SELFPAY | PROVIDERS: PCP Family Medicine; Visit Provider Nurse Practitioner Psychiatric/Mental Health | DX: F11.99 Opioid use, unspecified with unspecified opioid-induced disorder (principal) | CPT/HCPCS: 99211 ==

== ENCOUNTER → 2020-01-20 13:56 | Outpatient (BNVA) | payer MEDICARE, MEDICAID, SELFPAY | PROVIDERS: Visit Provider Nurse Practitioner Psychiatric/Mental Health | DX: F11.99 Opioid use, unspecified with unspecified opioid-induced disorder (principal) | CPT/HCPCS: 99211; Q3014 ==

== ENCOUNTER 2020-02-22 20:25 | Emergency (ER) | payer MEDICARE, MEDICAID, SELFPAY ==
--- NOTE | 2020-02-22 20:31 | ED.OVERDOSE ---
HPI - Overdose General Chief Complaint: ETOH/Substance Use Stated Complaint: HEROIN OD,NARCAN BY POLICE, A&O @ THIS TIME Time Seen by Provider: 02/22/20 20:29 Source: patient and EMS Mode of arrival: EMS Limitations: no limitations History of Present Illness HPI Narrative: recently stopped taking suboxone due to missed appointments, used heroin recreationally today, overdosed given [place] narcan 4mg by family, then another 4mg [place] by PD - responded well did not need to be bagged, now in ED, no SI MD complaint: accidental overdose Onset (ago): minute(s) (just prior to arrival) Context: Accidental Overdose: wanted to get high Treatments Prior to Arrival: narcan (8mg IN) Related Data Home Medications Medication Instructions Recorded Confirmed albuterol sulfate [ProAir HFA] 2 puff PO QID PRN 12/19/19 01/02/20 clonazepam 1 tab PO BID 12/19/19 01/02/20 gabapentin 600 mg PO DAILY 12/19/19 01/02/20 lithium carbonate 900 mg PO BEDTIME 12/19/19 01/02/20 lorazepam 1 tab PO TID PRN 12/19/19 01/02/20 venlafaxine 75 mg PO DAILY 12/19/19 01/02/20 venlafaxine 150 mg PO DAILY 12/19/19 01/02/20 gabapentin 1,200 mg PO BEDTIME 12/30/19 01/02/20 nicotine 1 patch TRANSDERMAL DAILY 12/30/19 01/02/20 Previous Rx's Medication Instructions Recorded naloxone 4 mg/actuation nasal spray 4 mg INTRANASAL Q2M PRN #2 ea 01/02/20 buprenorphine 12 mg-naloxone 3 mg 1 film BUCCAL DAILY 7 Days #7 ea 01/20/20 sublingual film Allergies Allergy/AdvReac Type Severity Reaction Status Date / Time amoxicillin [AMOXICILLIN] Allergy Mild HIVES Verified 12/27/19 18:58 Penicillins [PENICILLINS] Allergy Mild HIVES Verified 12/27/19 18:58 Review of Systems Review of Systems: Constitutional : No Fever, No Chills ENT/Mouth : No Ear Pain, No Nasal Congestion, No sore throat Eyes: No Eye Pain, No Swelling, No Redness Cardiovascular : No Chest Pain, No SOB Respiratory : No Cough, No Sputum, No Dyspnea Gastrointestinal : No Nausea, No Vomiting, No Diarrhea, No Hematochezia, No Melena Genitourinary : No Dysuria, No Urinary Frequency, No Hematuria Musculoskeletal : No Myalgias Skin : No Skin Lesions, No rash Neuro : No Weakness, No Numbness, No Paresthesias, No Dizziness, No Headache Psych : no Anxiety, positive Depression, no SI/HI Heme/Lymph: No Lymphadenopathy Endocrine : No Polyuria, No Polydipsia All other systems reviewed and are negative [facility] Past Medical History Attestation statement: The following information was validated with the patient. Medical History Asthma Multiple sclerosis Opioid use disorder Social History Social History Alcohol intake: never Smoking Status: Never smoker Substance Use Type: Opiates Advance Directives: No Advance Directives Information Provided: Yes Physical Exam Vital Signs: Vital Signs: Last Vital Signs Temp 98.6 F 02/22/20 20:32 Pulse 100 02/22/20 20:32 Resp 18 02/22/20 20:32 BP 121/73 02/22/20 20:32 Pulse Ox 97 02/22/20 20:32 Body Mass Index 26.5 Appearance: Alert. Oriented X3. No acute distress. Eyes: Pupils equal, round and reactive to light. ENT: Pharynx normal. Neck: Normal inspection. Neck supple. CVS: Normal heart rate and rhythm. Pulses normal. Respiratory: No respiratory distress. Breath sounds normal. Abdomen: Soft and non-tender. Skin: Skin warm and dry. Normal skin color. Normal skin turgor. Extremities: No lower extremity edema. No calf ttp Neuro: Oriented X 3. No motor deficit. No sensory deficit. Course Course Course Narrative: pateint is stable for DC at this time not toxic, awake no need for repeat narcan MDM - Overdose MDM Narrative Medical decision making narrative: 29 yo male with opiate use disorder - no SI, will refer to recovery coaches observe in ED, ordered 2 dose of IN narcan to go home with at his request, DC once clinically sober and observed 1.5 hours Discharge Plan Discharge Clinical Impression: Heroin overdose Qualifiers: Encounter type: initial encounter Injury intent: accidental or unintentional Qualified Code(s): T40.1X1A - Poisoning by heroin, accidental (unintentional), initial encounter Patient Disposition: Home, Self-Care Instructions: Opioid Use Disorder (ED) Additional Instructions: return to ED for any worsening symptoms or concerns Prescriptions: No Action venlafaxine 75 mg capsule,extended release 24hr 75 mg PO DAILY RF: 0 gabapentin 600 mg tablet 600 mg PO DAILY RF: 0 clonazepam 1 mg tablet 1 tab PO BID RF: 0 venlafaxine 150 mg capsule,extended release 24hr 150 mg PO DAILY RF: 0 lithium carbonate 450 mg tablet extended release 900 mg PO BEDTIME RF: 0 lorazepam 1 mg tablet 1 tab PO TID PRN (Reason: anxiety) RF: 0 albuterol sulfate [ProAir HFA] 90 mcg/actuation HFA aerosol inhaler 2 puff PO QID PRN (Reason: Shortness Of Breath Or Wheezing) RF: 0 gabapentin 600 mg Tablet 1,200 mg PO BEDTIME RF: 0 nicotine 14 mg/24 hr Patch 24 Hour 1 patch TRANSDERMAL DAILY RF: 0 Narcan 4 mg/actuation spray,non-aerosol 4 mg intranasal Q2M PRN (Reason: opioid overdose) Qty: 2 RF: 0 buprenorphine-naloxone [Suboxone] 12-3 mg film 1 film buccal DAILY 7 Days Qty: 7 RF: 0
[2020-02-22 20:32] VITALS: BP 121/73; PULSE 100; RESP 18; TEMP 37; O2SAT 97; BMI 26.5
--- NOTE | 2020-02-22 20:54 | MHC.RECOVSUP ---
Reason for consult o Current location: ED#5 o Identified substance use concern: opioid - Overdose - Withdrawal - - Support ? Intervention: o o o Community resources provided o Harm reduction discussion ? Plan: o Referral to [facility] o o Follow up tomorrow o o Patient to follow up with [facility] after discharge ? Additional information:pt came in due to an overdose. spoke with him and he stated that he is currently enrolled in the [facility] program but has not gone to take his suboxone and decided to use heroin and overdosed. pt stated that he will call first thing and begin to take his medication. he is interested in a RC and just wants to feel useful again. he is familiar with [facility] and wants to continue to get involved in the recovery community.
[2020-02-22] MEDS: Naloxone HCl Nasal TAKE HOME 4 MG SPRAY NOSTRILALT ×2 (22:09→22:10)
== END 2020-02-22 22:32 | disposition home or self-care (01) ==
LOC: HO.ED 20:37
PROVIDERS: Emergency Provider Emergency Medicine
DX: T40.1X1A Poisoning by heroin, accidental (unintentional), initial encounter (principal); Y92.9 Unspecified place or not applicable
CPT/HCPCS: 99283

== ENCOUNTER → 2020-03-26 11:01 | Outpatient (BNVA) | payer MEDICARE, MEDICAID, SELFPAY | PROVIDERS: Visit Provider Nurse Practitioner Psychiatric/Mental Health | DX: F11.20 Opioid dependence, uncomplicated (principal) | CPT/HCPCS: 99212 ==

== ENCOUNTER 2020-04-03 09:16 | Outpatient (REF) | payer MEDICARE, MEDICAID, SELFPAY ==
[2020-04-03 10:54] LABS: Alanine Aminotransferase 23 U/L (0-40); Albumin Level 4.3 g/dL (3.5-5.0); Alkaline Phosphatase 99 U/L (39-117); Aspartate Amino Transferase 23 U/L (5-37); Bilirubin Direct 0.3 mg/dL (0.0-0.5); Bilirubin Total 0.6 mg/dL (0.0-1.0); Total Protein 6.6 g/dL (6.5-8.0)
[2020-04-03 11:15] LABS: HBS Num1 4.39 mIU/mL (0-7.99); HBc Num1 0.03 S/CO (0.00-0.79); HIV AB/AG Nonreactive (Nonreactive); HIV Num 1 0.09 S/CO (0.00-0.99); Hepatitis A Antibody IgM 0.09 Index (0-0.79); Hepatitis B Core Antibody Nonreactive (Nonreactive); ~HepC Num1 0.06 S/CO (0.00-0.79); ~Hepatitis A Antibody IgM Nonreactive (Nonreactive); ~Hepatitis B Surface Antibody NONREACTIVE (Nonreactive); ~Hepatitis C Antibody Nonreactive (Nonreactive)
[2020-04-03 11:32] LABS: HBsAGNum1 0.26 S/CO (0.00-0.99); Hepatitis B Surface Antigen Negative (Negative)
== END 2020-04-03 09:17 | disposition home or self-care (01) ==
LOC: HO.LAB 09:16
PROVIDERS: PCP Family Medicine; Visit Provider Nurse Practitioner Psychiatric/Mental Health
DX: Z79.899 Other long term (current) drug therapy (principal); Z51.81 Encounter for therapeutic drug level monitoring
CPT/HCPCS: 36415; 80076; 80305; 86704; 86706; 86709; 86803; 87340; 87389; 99211

== ENCOUNTER 2020-08-29 21:05 | Emergency (ER) | payer MEDICARE, MEDICAID, OTHER, SELFPAY ==
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
[2020-08-29 21:09] VITALS: BP 129/81; PULSE 114; RESP 16; TEMP 36.6; O2SAT 100; BMI 29.0
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
[2020-08-29 22:00] VITALS: BP 110/72; PULSE 82; RESP 16; O2SAT 100
[2020-08-29] MEDS: Naloxone HCl Nasal TAKE HOME 4 MG SPRAY NOSTRILALT (22:43)
== END 2020-08-29 23:10 | disposition home or self-care (01) ==
PROVIDERS: Emergency Provider Emergency Medicine Emergency Medical Services; PCP Family Medicine
DX: S09.90XA Unspecified injury of head, initial encounter (principal); S91.312A Laceration without foreign body, left foot, initial encounter; F11.10 Opioid abuse, uncomplicated; M79.672 Pain in left foot; G35 Multiple sclerosis; J45.909 Unspecified asthma, uncomplicated; Z79.899 Other long term (current) drug therapy; V47.5XXA Car driver injured in collision with fixed or stationary object in traffic accident, initial encounter; Y93.9 Activity, unspecified; Y92.410 Unspecified street and highway as the place of occurrence of the external cause; Y99.9 Unspecified external cause status
CPT/HCPCS: 70450; 72125; 73620; 99284

== ENCOUNTER 2020-09-05 15:08 | Emergency (ER) | payer MEDICARE, MEDICAID, SELFPAY ==
--- NOTE | ~2020-09-05 | XR_ITS ---
EXAMINATION: CR CHEST CLINICAL INFORMATION: 10 mg dark and given. Rule out pulmonary edema. COMPARISON: None TECHNIQUE: Frontal view of the chest was obtained. FINDINGS: The cardiomediastinal silhouette is within normal limits in size. Lungs bilaterally are symmetrically expanded and clear. No evidence of pulmonary edema, focal consolidation, effusion or pneumothorax is seen. Mild convex right thoracic scoliosis is seen. XR/XR chest 1V IMPRESSION: No acute cardiopulmonary process. No evidence of pulmonary edema.
[2020-09-05 15:12] VITALS: BP 148/84; PULSE 100; RESP 18; TEMP 37.4; O2SAT 95; BMI 29.0
--- NOTE | 2020-09-05 15:23 | PC.NURSE ---
tolerating po post triage. belongings in decon.
--- NOTE | 2020-09-05 15:48 | ED.OVERDOSE ---
HPI - Overdose General Chief Complaint: Overdose Stated Complaint: OPIOID OD,10MG NARCAN GIVEN W/GOOD RESULT Time Seen by Provider: 09/05/20 15:21 Source: patient and EMS Mode of arrival: EMS History of Present Illness HPI Narrative: 30-year-old male with a past medical history of asthma, MS, opiate abuse disorder BIBA for heroin overdose requiring 10 mg of intranasal Narcan. Patient reports using 1 bag of heroin [employer]. Denies known injury/trauma/fall. Denies SI/HI. Admits to using marijuana. Denies other illicit drugs/ETOH. Denies CP/SOB, abdominal pain, nausea/vomiting MD complaint: accidental overdose Related Data Home Medications Medication Instructions Recorded Confirmed albuterol sulfate [ProAir HFA] 2 puff PO QID PRN 12/19/19 01/02/20 clonazepam 1 tab PO BID 12/19/19 01/02/20 gabapentin 600 mg PO DAILY 12/19/19 01/02/20 lithium carbonate 900 mg PO BEDTIME 12/19/19 01/02/20 venlafaxine 75 mg PO DAILY 12/19/19 01/02/20 venlafaxine 150 mg PO DAILY 12/19/19 01/02/20 gabapentin 1,200 mg PO BEDTIME 12/30/19 01/02/20 nicotine 1 patch TRANSDERMAL DAILY 12/30/19 01/02/20 Previous Rx's Medication Instructions Recorded naloxone 4 mg/actuation nasal spray 4 mg INTRANASAL Q2M PRN #2 ea 01/02/20 buprenorphine 12 mg-naloxone 3 mg 1 film BUCCAL DAILY 6 Days #6 ea 04/03/20 sublingual film Allergies Allergy/AdvReac Type Severity Reaction Status Date / Time amoxicillin [AMOXICILLIN] Allergy Mild HIVES Verified 12/27/19 18:58 Penicillins [PENICILLINS] Allergy Mild HIVES Verified 12/27/19 18:58 Review of Systems Review of Systems: Constitutional: No Fever, No Chills, No Fatigue, No Malaise Cardiovascular: No Chest Pain, No SOB, No Edema Respiratory: No Cough, No Dyspnea Gastrointestinal: No Nausea, No Vomiting, No Abdominal pain Genitourinary: No Dysuria, No Urinary Frequency, No Hematuria Musculoskeletal: No joint pain, No Myalgias, No Joint Swelling Skin: No Skin Lesions, No rash Neuro: No Weakness, No Headache Psych: No Depression, No SI/HI Yes all other systems are reviewed and are negative [facility] Past Medical History Attestation statement: The following information was validated with the patient. Medical History Asthma Multiple sclerosis Opioid use disorder Social History Social History Alcohol intake: never Substance Use Type: Opiates Advance Directives: No Advance Directives Information Provided: Yes Physical Exam Vital Signs: Vital Signs: Last Vital Signs Temp 99.3 F 09/05/20 15:12 Pulse 100 09/05/20 15:12 Resp 18 09/05/20 15:12 BP 148/84 H 09/05/20 15:12 Pulse Ox 95 09/05/20 15:12 Body Mass Index 29.0 Const: General: cooperative, no acute distress, alert and awake Orientation/consciousness: patient oriented x3 Limitations: no limitations HENMT: Head: Yes normal to inspection and Yes atraumatic Ears: hearing grossly normal bilaterally General nose exam: Normal external nose present Face and sinus: Yes normal facial exam Eyes: General: appearance normal, both eyes and all related structures Pupils: Equal, round and reactive pupils present and Dilated pupils bilaterally EOM: EOMs intact bilaterally Direct Ophthalmoscopy: normal light reflex Neck: Neck: Yes normal visual inspection Resp: Effort & Inspection: normal respiratory effort Auscultation: clear to auscultation bilaterally, no crackles and no wheezes Cardio: Rate: regular rate Heart sounds: S1 normal heart sound present and S2 normal heart sound present GI: Inspection: Yes normal to inspection Palpation (GI): Soft to palpation, nontender, no guarding and not rigid Skin: Rashes: no rashes Wounds: no wounds Neuro: General: patient oriented x3, tone normal and moves all extremities Cranial nerves: Yes Equal, round and reactive pupils present Extrem: General: Yes normal to inspection Psych: Appearance: grossly normal Affect: normal affect Attitude: cooperative Thought process: Normal thought process present Thought content: Normal thought content present, suicidality and no homicidality Insight: Good insight present (Psych) Judgement: Good judgement present (Psych) Course Course Course Narrative: XR chest 1V IMPRESSION: No acute cardiopulmonary process. No evidence of pulmonary edema. 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 On exam vital signs stable, NAD, denies SI/HI, accidental overdose. Will observe patient and refer to recovery coachs. Will also obtain CXR to rule out pulmonary edema secondary to amount of Narcan and required Plan: CXR, observed/reassess Medical Records Attestation: I reviewed the patient's medical records. Lab Data Attestation: I reviewed the patient's lab results. Discharge Plan Discharge Clinical Impression: Drug overdose Patient Disposition: Home, Self-Care Instructions: Adult Overdose (ED) Additional Instructions: Please do not do drugs or drink alcohol it can kill you If you have thoughts of hurting herself or hurting others please return to the ED Your supplied with resources for detox, please use them Prescriptions: No Action buprenorphine-naloxone [Suboxone] 12-3 mg film 1 film buccal DAILY 6 Days Qty: 6 RF: 0 venlafaxine 75 mg capsule,extended release 24hr 75 mg PO DAILY RF: 0 gabapentin 600 mg tablet 600 mg PO DAILY RF: 0 clonazepam 1 mg tablet 1 tab PO BID RF: 0 venlafaxine 150 mg capsule,extended release 24hr 150 mg PO DAILY RF: 0 lithium carbonate 450 mg tablet extended release 900 mg PO BEDTIME RF: 0 albuterol sulfate [ProAir HFA] 90 mcg/actuation HFA aerosol inhaler 2 puff PO QID PRN (Reason: Shortness Of Breath Or Wheezing) RF: 0 gabapentin 600 mg Tablet 1,200 mg PO BEDTIME RF: 0 nicotine 14 mg/24 hr Patch 24 Hour 1 patch TRANSDERMAL DAILY RF: 0 Narcan 4 mg/actuation spray,non-aerosol 4 mg intranasal Q2M PRN (Reason: opioid overdose) Qty: 2 RF: 0 Referrals: [facility] [Physician] - 2 days
--- NOTE | 2020-09-05 16:20 | MHC.RECOVSUP ---
Recovery Support note: Patient is a 30 year old Ukrainian speaking male who presented to [facility] ED after an accidental overdose. This financial underwriter met with patient to discuss his substance use and treatment options. Patient reports he uses due to chronic pain. Patient states he had knee surgery when he was younger and he got addicted to Percocet. Patient reports he wants to have a normal level of pain and not have to live with spikes of severe pain. Patient was previously attending the [facility] and found Suboxone helpful for his opioid use but not helpful for his pain. This financial underwriter discussed methadone maintenance programs with patient and provided him with information on the [facility] clinic in [place]. Discussed IOP, outpatient therapy, [facility] [place] and recovery coaching with patient. Patient was receptive to receiving information on all of these supports. Patient was familiar with [facility] [place] and had been once in the past. Patient expressed interest in returning and getting connected with a job coach. Discussed pain management clinic with patient and provided him with information on the clinic through [facility]. Patient was provided with the contact information for this financial underwriter in the event that he has any additional questions after discharge. Patient expressed interest in outpatient therapy and access to psychiatry. This financial underwriter will complete a referral through [facility] for patient. Discussed case with patient's ED provider.
== END 2020-09-05 18:16 | disposition home or self-care (01) ==
PROVIDERS: Emergency Provider Internal Medicine
DX: T40.1X1A Poisoning by heroin, accidental (unintentional), initial encounter (principal); F11.10 Opioid abuse, uncomplicated; F12.90 Cannabis use, unspecified, uncomplicated; Y92.9 Unspecified place or not applicable; G35 Multiple sclerosis; Z79.899 Other long term (current) drug therapy
CPT/HCPCS: 71045; 99283

== ENCOUNTER 2020-09-06 02:55 | Emergency (ER) | payer MEDICARE, MEDICAID, SELFPAY ==
--- NOTE | ~2020-09-06 | XR_ITS ---
EXAMINATION: XR WRIST, RIGHT CLINICAL INFORMATION: Pain, fall COMPARISON: None TECHNIQUE: 3 views of the right wrist. FINDINGS: Osseous alignment is anatomic. No acute fracture is seen. No significant focal soft tissue abnormality identified. XR/XR hand wrist RT IMPRESSION: No acute findings identified.
[2020-09-06 03:01] VITALS: BP 127/88; PULSE 108; RESP 16; TEMP 36.6; O2SAT 98; BMI 29.7
--- NOTE | 2020-09-06 04:17 | ED.OVERDOSE ---
HPI - Overdose General Chief Complaint: ETOH/Substance Use Stated Complaint: OD, 12MG NARCAN GIVEN BY FAMILY W/GOOD RESULT Time Seen by Provider: 09/06/20 04:17 Source: patient and family (Mother) Mode of arrival: EMS History of Present Illness HPI Narrative: 30-year-old male with longstanding history heroin addiction with multiple detox attempts presents via EMS for having accidental overdose with 2 bags of IV heroin because patient states he was not feeling anything after 1 bag. The mother states that if her father had not heard the patient hit the floor with subsequent administration of Narcan she feels that her son would have . Patient is denying suicidal ideation and unsure whether not he wants to pursue an additional detox. Patient currently has complaints of right wrist pain Related Data Home Medications Medication Instructions Recorded Confirmed albuterol sulfate [ProAir HFA] 2 puff PO QID PRN 12/19/19 01/02/20 clonazepam 1 tab PO BID 12/19/19 01/02/20 gabapentin 600 mg PO DAILY 12/19/19 01/02/20 lithium carbonate 900 mg PO BEDTIME 12/19/19 01/02/20 venlafaxine 75 mg PO DAILY 12/19/19 01/02/20 venlafaxine 150 mg PO DAILY 12/19/19 01/02/20 gabapentin 1,200 mg PO BEDTIME 12/30/19 01/02/20 nicotine 1 patch TRANSDERMAL DAILY 12/30/19 01/02/20 Previous Rx's Medication Instructions Recorded naloxone 4 mg/actuation nasal spray 4 mg INTRANASAL Q2M PRN #2 ea 01/02/20 buprenorphine 12 mg-naloxone 3 mg 1 film BUCCAL DAILY 6 Days #6 ea 04/03/20 sublingual film Allergies Allergy/AdvReac Type Severity Reaction Status Date / Time amoxicillin [AMOXICILLIN] Allergy Mild HIVES Verified 09/06/20 03:05 Penicillins [PENICILLINS] Allergy Mild HIVES Verified 09/06/20 03:05 Review of Systems Review of Systems: Pertinent positives and negatives as stated in HPI 10 point review of systems is otherwise negative. PMFSH Past Medical History Source: nursing notes reviewed Medical History Asthma Multiple sclerosis Opioid use disorder Social History Social History Alcohol intake: never Substance Use Type: Opiates Advance Directives: No Advance Directives Information Provided: No Physical Exam Vital Signs: Vital Signs: Last Vital Signs Temp 98 F 09/06/20 03:01 Pulse 100 09/06/20 05:00 Resp 20 09/06/20 05:00 BP 110/76 09/06/20 05:00 Pulse Ox 100 09/06/20 05:00 Body Mass Index 29.7 VITAL SIGNS: Reviewed. GENERAL: Well developed, well nourished, in no acute distress. HEAD: Normocephalic/atraumatic EYES: PERRLA, EOMI OROPHARYNX: no oral lesions noted, posterior pharynx clear NECK: Supple, no adenopathy LUNGS: Normal breath sounds. No adventitious sounds or accessory muscle use. SpO2<98> CARDIOVASCULAR: Regular rate and rhythm without noted murmurs ABDOMEN: Soft, non-tender, non-distended with bowel sounds. SKIN: Inspection of the skin reveals no rashes NEUROLOGIC: Alert and oriented x 4. Course Course Course Narrative: 30-year-old male with history and clinical presentation consistent with accidental overdose and currently declines detox. Patient will be observed for 2 hours and then discharged home in stable condition with home Narcan. Discharge Plan Discharge Clinical Impression: Overdose Patient Disposition: Home, Self-Care Instructions: Adult Overdose (ED) Additional Instructions: Please follow-up with your primary care provider in the next 2-3 days. Return to the ER for acute worsening of symptoms. Prescriptions: No Action buprenorphine-naloxone [Suboxone] 12-3 mg film 1 film buccal DAILY 6 Days Qty: 6 RF: 0 venlafaxine 75 mg capsule,extended release 24hr 75 mg PO DAILY RF: 0 gabapentin 600 mg tablet 600 mg PO DAILY RF: 0 clonazepam 1 mg tablet 1 tab PO BID RF: 0 venlafaxine 150 mg capsule,extended release 24hr 150 mg PO DAILY RF: 0 lithium carbonate 450 mg tablet extended release 900 mg PO BEDTIME RF: 0 albuterol sulfate [ProAir HFA] 90 mcg/actuation HFA aerosol inhaler 2 puff PO QID PRN (Reason: Shortness Of Breath Or Wheezing) RF: 0 gabapentin 600 mg Tablet 1,200 mg PO BEDTIME RF: 0 nicotine 14 mg/24 hr Patch 24 Hour 1 patch TRANSDERMAL DAILY RF: 0 Narcan 4 mg/actuation spray,non-aerosol 4 mg intranasal Q2M PRN (Reason: opioid overdose) Qty: 2 RF: 0 Referrals: Physician,Unknown [Primary Care Provider] - 2 days
--- NOTE | 2020-09-06 04:43 | PC.NURSE ---
at bedside for primary eval. Plan for XRay and discharge after 2 hours of monitoring. Pt provided with apple juice and gingerale per request.
[2020-09-06] MEDS: Naloxone HCl Nasal 4 MG SPRAY NOSTRILALT (04:59)
--- NOTE | 2020-09-06 04:59 | PC.NURSE ---
XRay at bedside. Pt provided with take home Narcan.
[2020-09-06 05:00] VITALS: BP 110/76; PULSE 100; RESP 20; O2SAT 100
== END 2020-09-06 05:53 | disposition home or self-care (01) ==
PROVIDERS: Emergency Provider Student in an Organized Health Care Education/Training Program
DX: T40.1X1A Poisoning by heroin, accidental (unintentional), initial encounter (principal); Y92.009 Unspecified place in unspecified non-institutional (private) residence as the place of occurrence of the external cause; F11.10 Opioid abuse, uncomplicated; Z71.51 Drug abuse counseling and surveillance of drug abuser; Z79.899 Other long term (current) drug therapy
CPT/HCPCS: 73110; 73130; 99284

== ENCOUNTER → 2020-11-05 11:16 | Outpatient (BNVA) | payer MEDICARE, MEDICAID, SELFPAY | PROVIDERS: Visit Provider Nurse Practitioner Psychiatric/Mental Health | DX: F11.99 Opioid use, unspecified with unspecified opioid-induced disorder (principal); Z88.0 Allergy status to penicillin; Z88.1 Allergy status to other antibiotic agents; Z79.899 Other long term (current) drug therapy; Z51.81 Encounter for therapeutic drug level monitoring | CPT/HCPCS: 80305; 99212 ==

== ENCOUNTER 2020-11-19 13:56 | Outpatient (REF) | payer MEDICARE, MEDICAID, SELFPAY ==
[2020-11-19 15:01] LABS: Fentanyl, urine Not Detected (Not Detect)
== END 2020-11-19 13:57 | disposition home or self-care (01) ==
LOC: HO.LAB 13:56
PROVIDERS: Visit Provider Nurse Practitioner Psychiatric/Mental Health
DX: F11.99 Opioid use, unspecified with unspecified opioid-induced disorder (principal)
CPT/HCPCS: 36415; 80305; 80307; 96372; 99212; J2315

== ENCOUNTER 2021-01-24 00:33 | Emergency (ER) | payer MEDICARE, MEDICAID, SELFPAY ==
[2021-01-24 00:41] VITALS: BP 120/85; BP 124/76; PULSE 100; PULSE 94; RESP 20; TEMP 37.3; O2SAT 98; BMI 33.9
--- NOTE | 2021-01-24 01:50 | HO.SUDE ---
CARE team met with pt to complete SUDE. He arrived to ED via EMS s/p accidental heroin overdose after using 1/2 bag. He was found by his mother who performed chest compressions and he received 12mg narcan prior to arrival. He was A&Ox4 and engaged easily with this sign writer letterer or painter. Current Use: Heroin- had been clean for > 5 months, relapsed yesterday and has used twice since. No tox screen collected at time of evaluation. Recent tox screen from MAT appt on was positive for cocaine, benzos (prescribed) and marijuana. Treatment Hx: His mother petitioned for [employer] 35 commitment after an accidental overdose on 09/06/20, and he was committed at [facility] for 42 days. Started on vivitrol injection during commitment and received doses on 10/15 and 11/19, however he stopped getting the injection because he didn't like how it was making him feel. He has also been on suboxone and methadone maintenance in the past. He reported that he prefers not to substitute one substance with another. He has a history of inpt detox and mental health admissions. He is working with a psychiatric med provider named Floresita (office is in [place]) and he has an upcoming appointment with her on 02/10/21. He has a referral for a pain management clinic, however has not followed up with it yet. Triggers: Conflict with his mother, whom he lives with- shared that she is always calling him lazy and tries to take any money he has when he gets it (i.e. SSI checks, paychecks from working). Multiple sclerosis- chronic pain and weakness, pain is poorly managed. Recommendations: Discussed possibly attending an IOP or early recovery group. He declined interest in resources at this time, stating that he feels that he'll be okay after this and that he plans to stay busy with work and focusing on his health.
--- NOTE | 2021-01-24 02:53 | ED_ITS ---
HPI - Overdose General Chief Complaint: Overdose Stated Complaint: overdose Time Seen by Provider: 01/24/21 02:39 Source: patient Mode of arrival: EMS Limitations: no limitations History of Present Illness HPI Narrative: 30-year-old male with history of opiate use disorder who presents emergency department for evaluation of an overdose. The patient states that he has been sober since being placed on a [address] in August of 2020. He states that he was released in October of 2020 and had not used until this evening. Patient states that he injected a half a bag of heroin. He states that he injected this heroin at home. He was found unresponsive by his mother he started CPR. He was also given intranasal Narcan 4 mg x 3 doses by his family. The paramedics found the patient awake and alert transported the patient to the emergency department for evaluation. At the time of my evaluation the patient is complaining of a [id number] diffuse, pounding headache. He states that he is feeling weak but he attributes this to his MS. He denies any other symptoms. Patient states he has tried multiple treatments for his opiate use disorder including Suboxone, Vivitrol and methadone. He denies intentionally trying to kill himself and states that the overdose was accidental. Related Data Home Medications Medication Instructions Recorded Confirmed albuterol sulfate 90 mcg/actuation 2 puff PO QID PRN 12/19/19 11/05/20 aerosol inhaler (ProAir HFA) lithium carbonate 450 mg 900 mg PO BEDTIME 12/19/19 11/05/20 tablet,extended release venlafaxine 150 mg 150 mg PO DAILY 12/19/19 11/05/20 capsule,extended release 24 hr venlafaxine 75 mg capsule,extended 75 mg PO DAILY 12/19/19 11/05/20 release 24 hr gabapentin 600 mg tablet 1,200 mg PO BEDTIME 12/30/19 11/05/20 nicotine 14 mg/24 hr daily 1 patch TRANSDERMAL DAILY 12/30/19 11/05/20 transdermal patch ocrelizumab 30 mg/mL intravenous 600 mg IV [id number] 11/05/20 11/05/20 solution (Ocrevus) Previous Rx's Medication Instructions Recorded naloxone 4 mg/actuation nasal 4 mg INTRANASAL Q2M PRN #2 ea 01/02/20 spray (Narcan) naltrexone microspheres 380 mg 380 mg IM Q4W #1 ea 11/05/20 intramuscular suspension,extended release (Vivitrol) Allergies Allergy/AdvReac Type Severity Reaction Status Date / Time amoxicillin [AMOXICILLIN] Allergy Mild HIVES Verified 09/06/20 03:05 Penicillins [PENICILLINS] Allergy Mild HIVES Verified 09/06/20 03:05 Review of Systems Review of Systems: Yes all other systems are reviewed and are negative [facility] Past Medical History [facility] Narrative: Social history: The patient smokes 1/2 pack of cigarettes per day times many years. He denies alcohol use. States that he occasionally smokes marijuana. Does have a long history of opiate use disorder and does admit to using 1/2 bag of heroin this evening. Medical History Asthma Multiple sclerosis Opioid use disorder Social History Social History Alcohol intake: never Substance Use Type: Opiates Advance Directives: No Advance Directives Information Provided: Yes Physical Exam Vital Signs: Vital Signs: Last Vital Signs Temp 99.2 F 01/24/21 00:41 Pulse 94 01/24/21 00:41 Resp 20 01/24/21 00:41 BP 124/76 01/24/21 00:41 Pulse Ox 98 01/24/21 00:41 BMI result Body Mass Index 33.9 Const: General: cooperative and no acute distress Orientation/consciousness: oriented to person and oriented to place Limitations: no limitations HENMT: Head: Yes normal to inspection, Yes normocephalic and Yes atraumatic Ears: external ears normal General nose exam: Normal external nose present Face and sinus: Yes normal facial exam Mouth: Normal oral and palatal mucosa present Throat: Yes posterior oropharynx normal Eyes: General: appearance normal, both eyes and all related structures Pupils: Equal, round and reactive pupils present Neck: Neck: Yes normal visual inspection, Yes no lymphadenopathy, Yes trachea midline and Yes supple Chest: Chest palpation & inspection: normal inspection of the chest and normal palpation of entire chest wall Resp: Effort & Inspection: normal respiratory effort and able to speak in complete sentences Auscultation: clear to auscultation bilaterally Cardio: Rate: regular rate Rhythm: regular rhythm Heart sounds: S1 normal heart sound present, S2 normal heart sound present and no murmurs GI: Inspection: Yes normal to inspection Palpation (GI): Soft to palpation, nontender and no guarding Auscultation: normal bowel sounds : General: Yes no CVA tenderness Back/Spine/Pelvis: Back: no CVA tenderness Skin: General skin exam: no rashes or lesions noted Neuro: General: oriented to person and oriented to place Cranial nerves: Yes CN's II-XII intact bilaterally and Yes Equal, round and reactive pupils present Cognition (Neuro): normal cognition Motor exam (neuro): 5/5 motor strength present throughout Extrem: General: Yes normal to inspection Psych: Appearance: grossly normal Speech and movement: Normal speech and movement present Affect: normal affect Attitude: cooperative Thought process: Normal thought process present Thought content: Normal thought content present Course Course Course Narrative: 30-year-old male with a history of opiate use disorder who his been sober since August of 2020 who used 1/2 back of heroin this evening and was found unresponsive by his mother who started CPR and administered for doses of intranasal Narcan which woke the patient up. At the time my evaluation the patient is complaining of a headache and weakness which he attributes to his MS. The patient was given Tylenol 975 mg orally. Patient was observed in the emergency department for approximately 2 hours and he is awake and alert at this time I think that he can be discharged back home. He was evaluated by our care team who will give him some outpatient resources to follow up with. The patient will be discharged home with intranasal Narcan. Discharge Plan Discharge Clinical Impression: Opiate overdose Qualifiers: Encounter type: initial encounter Injury intent: accidental or unintentional Qualified Code(s): T40.601A - Poisoning by unspecified narcotics, accidental (unintentional), initial encounter Patient Disposition: Home, Self-Care Instructions: Opioid Use Disorder (ED) Additional Instructions: Your observed in the emergency department for 2 hours and during this time you remained awake and alert with no recurrence of your lethargy. Your are being discharged home with intranasal Narcan. If you are going to continue to use heroin, you should make sure that there is a sober person with you that is not using drugs and that this person can administer intranasal Narcan in the event that you stop breathing. Please follow up with the care team and and use the resources to try to get more help with your opiate use disorder. Follow-up with your doctor in 2 days. Please return to the emergency department if your symptoms get worse or if you develop any symptoms that are concerning to you. Prescriptions: No Action venlafaxine 75 mg capsule,extended release 24hr 75 mg PO DAILY RF: 0 venlafaxine 150 mg capsule,extended release 24hr 150 mg PO DAILY RF: 0 lithium carbonate 450 mg tablet extended release 900 mg PO BEDTIME RF: 0 albuterol sulfate [ProAir HFA] 90 mcg/actuation HFA aerosol inhaler 2 puff PO QID PRN (Reason: Shortness Of Breath Or Wheezing) RF: 0 gabapentin 600 mg Tablet 1,200 mg PO BEDTIME RF: 0 nicotine 14 mg/24 hr Patch 24 Hour 1 patch TRANSDERMAL DAILY RF: 0 Narcan 4 mg/actuation spray,non-aerosol 4 mg intranasal Q2M PRN (Reason: opioid overdose) Qty: 2 RF: 0 Vivitrol 380 mg suspension,extended rel recon 380 mg IM Q4W Qty: 1 RF: 5 Ocrevus 30 mg/mL solution 600 mg IV [id number] RF: 0
[2021-01-24] MEDS: Acetaminophen 325 MG TABLET 975 MG PO (03:12)
[2021-01-24] MEDS: Naloxone HCl Nasal TAKE HOME 4 MG SPRAY NOSTRILALT (03:12)
== END 2021-01-24 03:40 | disposition home or self-care (01) ==
PROVIDERS: Emergency Provider Emergency Medicine Emergency Medical Services
DX: T40.1X1A Poisoning by heroin, accidental (unintentional), initial encounter (principal); Y92.009 Unspecified place in unspecified non-institutional (private) residence as the place of occurrence of the external cause; G35 Multiple sclerosis; J45.909 Unspecified asthma, uncomplicated
CPT/HCPCS: 99283

== ENCOUNTER → 2021-03-31 10:07 | Outpatient (BNVA) | payer MEDICARE, MEDICAID, SELFPAY | PROVIDERS: Visit Provider Internal Medicine | DX: F11.20 Opioid dependence, uncomplicated (principal) | CPT/HCPCS: 80305; 96372; 99211 ==

== ENCOUNTER → 2021-04-29 09:51 | Outpatient (BNVA) | payer MEDICARE, MEDICAID, SELFPAY | PROVIDERS: Visit Provider Nurse Practitioner Psychiatric/Mental Health | DX: F11.20 Opioid dependence, uncomplicated (principal) | CPT/HCPCS: 80305; 96372; 99212 ==

== ENCOUNTER → 2021-05-27 08:54 | Outpatient (BNVA) | payer MEDICARE, MEDICAID, SELFPAY | PROVIDERS: Visit Provider Nurse Practitioner Psychiatric/Mental Health | DX: F11.20 Opioid dependence, uncomplicated (principal) | CPT/HCPCS: 80305; 96372; 99212 ==

== ENCOUNTER → 2021-06-24 08:58 | Outpatient (BNVA) | payer MEDICARE, MEDICAID, SELFPAY | PROVIDERS: Visit Provider Nurse Practitioner Psychiatric/Mental Health | DX: Z51.81 Encounter for therapeutic drug level monitoring (principal); F11.20 Opioid dependence, uncomplicated | CPT/HCPCS: 80305; 96372; 99212; J2315 ==

== ENCOUNTER → 2021-07-22 09:12 | Outpatient (BNVA) | payer MEDICARE, MEDICAID, SELFPAY | PROVIDERS: Visit Provider Nurse Practitioner Psychiatric/Mental Health | DX: F11.20 Opioid dependence, uncomplicated (principal) | CPT/HCPCS: 80305; 96372; 99212 ==

== ENCOUNTER → 2021-08-19 11:04 | Outpatient (BNVA) | payer MEDICARE, MEDICAID, SELFPAY | PROVIDERS: Visit Provider Nurse Practitioner Psychiatric/Mental Health | DX: Z51.81 Encounter for therapeutic drug level monitoring (principal); F11.20 Opioid dependence, uncomplicated | CPT/HCPCS: 80305; 96372; 99212; J2315 ==

== ENCOUNTER → 2021-09-20 13:17 | Outpatient (BNVA) | payer MEDICARE, MEDICAID, SELFPAY | PROVIDERS: Visit Provider Nurse Practitioner Psychiatric/Mental Health | DX: F11.20 Opioid dependence, uncomplicated (principal) | CPT/HCPCS: 80305; 96372; J2315 ==

== ENCOUNTER → 2021-10-19 13:57 | Outpatient (BNVA) | payer MEDICARE, MEDICAID, SELFPAY | PROVIDERS: PCP Family Medicine; Visit Provider Nurse Practitioner Psychiatric/Mental Health | DX: F11.20 Opioid dependence, uncomplicated (principal); Z51.81 Encounter for therapeutic drug level monitoring; Z79.899 Other long term (current) drug therapy | CPT/HCPCS: 80305; 96372; 99212; J2315 ==

== ENCOUNTER → 2021-11-16 11:02 | Outpatient (BNVA) | payer MEDICARE, MEDICAID, SELFPAY | PROVIDERS: PCP Family Medicine; Visit Provider Nurse Practitioner Psychiatric/Mental Health | DX: F11.20 Opioid dependence, uncomplicated (principal) | CPT/HCPCS: 80305; 96372; 99212; J2315 ==

== ENCOUNTER → 2021-12-16 11:08 | Outpatient (BNVA) | payer MEDICARE, MEDICAID, SELFPAY | PROVIDERS: PCP Family Medicine; Visit Provider Nurse Practitioner Psychiatric/Mental Health | DX: Z51.81 Encounter for therapeutic drug level monitoring (principal); F10.20 Alcohol dependence, uncomplicated | CPT/HCPCS: 80305; 96372; 99212 ==

== ENCOUNTER → 2022-01-12 11:08 | Outpatient (BNVA) | payer MEDICARE, MEDICAID, SELFPAY | PROVIDERS: PCP Family Medicine; Visit Provider Nurse Practitioner Psychiatric/Mental Health | DX: Z51.81 Encounter for therapeutic drug level monitoring (principal); F11.20 Opioid dependence, uncomplicated | CPT/HCPCS: 80305; 96372; 99212 ==

== ENCOUNTER → 2022-02-10 11:26 | Outpatient (BNVA) | payer MEDICARE, MEDICAID, SELFPAY | PROVIDERS: PCP Family Medicine; Visit Provider Nurse Practitioner Psychiatric/Mental Health | DX: F11.20 Opioid dependence, uncomplicated (principal) | CPT/HCPCS: 96372; 99212 ==

== ENCOUNTER → 2022-03-10 11:29 | Outpatient (BNVA) | payer MEDICARE, MEDICAID, SELFPAY | PROVIDERS: PCP Family Medicine; Visit Provider Nurse Practitioner Psychiatric/Mental Health | DX: F11.20 Opioid dependence, uncomplicated (principal); G35 Multiple sclerosis; Z51.81 Encounter for therapeutic drug level monitoring; Z79.899 Other long term (current) drug therapy | CPT/HCPCS: 80305; 96372; 99212 ==

== ENCOUNTER 2022-04-05 16:03 | Outpatient (REF) | payer MEDICARE, MEDICAID, SELFPAY ==
[2022-04-05 17:56] LABS: Alanine Aminotransferase 70 U/L (0-40); Albumin Level 4.8 g/dL (3.5-5.0); Alkaline Phosphatase 109 U/L (39-117); Aspartate Amino Transferase 34 U/L (5-37); Bilirubin Direct < 0.2 mg/dL (0.0-0.5); Bilirubin Total 0.6 mg/dL (0.0-1.0); Total Protein 6.9 g/dL (6.5-8.0)
== END 2022-04-05 16:04 | disposition home or self-care (01) ==
LOC: HO.LAB 16:03
PROVIDERS: PCP Family Medicine; Visit Provider Nurse Practitioner Psychiatric/Mental Health
DX: Z79.899 Other long term (current) drug therapy (principal)
CPT/HCPCS: 36415; 80076

== ENCOUNTER → 2022-04-12 15:39 | Outpatient (BNVA) | payer MEDICARE, MEDICAID, SELFPAY | PROVIDERS: PCP Family Medicine; Visit Provider Nurse Practitioner Psychiatric/Mental Health | DX: Z51.81 Encounter for therapeutic drug level monitoring (principal); F11.20 Opioid dependence, uncomplicated | CPT/HCPCS: 80305; 96372; 99212 ==

== ENCOUNTER → 2022-05-10 13:54 | Outpatient (BNVA) | payer MEDICARE, MEDICAID, SELFPAY | PROVIDERS: PCP Family Medicine; Visit Provider Nurse Practitioner Psychiatric/Mental Health | DX: F11.21 Opioid dependence, in remission (principal); Z51.81 Encounter for therapeutic drug level monitoring; Z79.899 Other long term (current) drug therapy | CPT/HCPCS: 80305; 96372; 99212 ==

== ENCOUNTER → 2022-06-07 14:19 | Outpatient (BNVA) | payer MEDICARE, MEDICAID, SELFPAY | PROVIDERS: PCP Family Medicine; Visit Provider Nurse Practitioner Psychiatric/Mental Health | DX: F11.21 Opioid dependence, in remission (principal); Z51.81 Encounter for therapeutic drug level monitoring; Z79.899 Other long term (current) drug therapy | CPT/HCPCS: 80305; 96372; 99212 ==

== ENCOUNTER → 2022-07-06 14:44 | Outpatient (BNVA) | payer MEDICARE, MEDICAID, SELFPAY | PROVIDERS: PCP Family Medicine; Visit Provider Nurse Practitioner Psychiatric/Mental Health | DX: F11.20 Opioid dependence, uncomplicated (principal) | CPT/HCPCS: 80305; 96372; 99212 ==

== ENCOUNTER → 2022-08-15 15:01 | Outpatient (BNVA) | payer MEDICARE, MEDICAID, SELFPAY | PROVIDERS: PCP Family Medicine; Visit Provider Nurse Practitioner Psychiatric/Mental Health | DX: F11.21 Opioid dependence, in remission (principal); Z79.899 Other long term (current) drug therapy | CPT/HCPCS: 96372; 99212 ==

== ENCOUNTER 2022-09-14 15:21 | Outpatient (AMB) | payer MEDICARE, MEDICAID, SELFPAY ==
[2022-09-14 15:33] VITALS: BP 120/98; PULSE 105; O2SAT 96
--- NOTE | 2022-09-14 15:33 | A.OFFVIS_ITS ---
Intake Vital Signs 09/14/22 15:33 BP 120/98 H Blood Pressure Location Lt brachial Position Sitting Pulse 105 H Pulse Oximetry (%) 96 Intake Visit Reasons: LUKASZ INJ Allergies amoxicillin [AMOXICILLIN] Allergy (Mild, Verified 08/15/22 15:13) HIVES Penicillins [PENICILLINS] Allergy (Mild, Verified 08/15/22 15:13) HIVES HPI LUKASZ INJ HPI Details Patient presents for follow up and vivitrol injection Continues to do well with recovery Considering taking courses to work in the field of addiction and recovery [facility] Medical History Asthma Multiple sclerosis Opioid use disorder Social History Alcohol intake: never Substance Use Type: Opiates Review of Systems Const Reports as per HPI and Reports no additional complaints Physical Exam Vital Signs: Last Vital Signs Pulse 105 H 09/14/22 15:33 BP 120/98 H 09/14/22 15:33 Pulse Ox 96 09/14/22 15:33 Const General: cooperative, healthy appearing and alert Nutritional Appearance: average body habitus Orientation/consciousness: patient oriented x3 Limitations: no limitations Skin General skin exam: no rashes or lesions noted Neuro General: patient oriented x3 Psych Appearance: well kempt Mental Status: mental status grossly normal Speech and movement: Normal speech and movement present Affect: normal affect Attitude: cooperative Thought process: Normal thought process present Thought content: Normal thought content present Insight: Good insight present (Psych) Judgement: Good judgement present (Psych) Office Meds Vivitrol ER Performing Provider: Estrellita Anderson CNP Administered by: Molly Shea RN on 09/14/22 15:40 Dose Route Admin Location Lot Number Expiration Date NDC Motorcyles Final Inspector 380 mg IM [id number] 08/19/24 15475-398-00 [employer] Comments: T/W assessed for s/s of infection, no pain, no swelling, no redness, no exudate, no fever. Pt reminded to monitor for above and call the [facility]. Pt tolerated INJ. Results AMB 14 Panel Urine Drug Screen Urine Marijuana (THC) Positive Last Edit by Molly Shea RN on 09/14/22 15:3 7 Urine Cocaine Negative Last Edit by Molly Shea RN on 09/14/22 15:37 Urine Morphine Negative Last Edit by Molly Shea RN on 09/14/22 15:37 Urine Methamphetamine Negative Last Edit by Molly Shea RN on 09/14/22 15:3 7 Urine Amphetamine Negative Last Edit by Molly Shea RN on 09/14/22 15:37 Urine Benzodiazepine Negative Last Edit by Molly Shea RN on 09/14/22 15:37 Urine Barbiturates Negative Last Edit by Molly Shea RN on 09/14/22 15:37 Urine Methadone Negative Last Edit by Molly Shea RN on 09/14/22 15:37 Urine Buprenorphine Negative Last Edit by Molly Shea RN on 09/14/22 15:37 Urine Tricyclic Antidepressant Positive Last Edit by Molly Shea RN on 09/14/22 15:37 Urine MDMA Negative Last Edit by Molly Shea RN on 09/14/22 15:37 Urine Oxycodone Negative Last Edit by Molly Shae RN on 09/14/22 15:37 Urine Phencyclidine Negative Last Edit by Molly Shea RN on 09/14/22 15:37 Urine Propoxyphene Negative Last Edit by Molly Shea RN on 09/14/22 15:37 Results Reviewed Results Reviewed: Laboratory Last Values POC Urine Buprenorphine Negative 09/14/22 15:35 POC Urine Morphine Negative 09/14/22 15:35 POC Urine Oxycodone Negative 09/14/22 15:35 POC Urine Methadone Negative 09/14/22 15:35 POC Urine Propoxyphene Negative 09/14/22 15:35 POC Urine Barbiturates Negative 09/14/22 15:35 POC U Tricyclic Antidpr Positive 09/14/22 15:35 POC Urine PCP Negative 09/14/22 15:35 POC Ur Amphetamines Negative 09/14/22 15:35 POC Ur Methamphetamine Negative 09/14/22 15:35 POC Urine MDMA Negative 09/14/22 15:35 POC Ur Benzodiazepine Negative 09/14/22 15:35 POC Urine Cocaine Negative 09/14/22 15:35 POC Ur Marijuana (THC) Positive 09/14/22 15:35 Assessment & Plan Assessment & Plan (1) Opioid use disorder, severe, in sustained remission: Code(s): F11.21 - Opioid dependence, in remission Plan: * tolerated injection * follow up 4 weeks Orders: Orders AMB Naltrexone Injection Patient Supplied 09/14/22 F11.21 - Opioid dependence, in remission AMB 14 Panel Urine Drug Screen 09/14/22 Z51.81 - Encounter for therapeutic drug level monitoring Medications: New nicotine 1 patch transdermal Q24H 30 ea 1RF Discontinued nicotine Discontinued Reason: Doctor's Order 1 patch transdermal Q24H 28 ea 3RF Coding Level of Care Code Est Pt Level 3 (35310) Diagnoses Opioid use disorder, severe, in sustained remission F11.21
== END 2022-09-14 16:46 | disposition home or self-care (01) ==
LOC: HO.HCC 15:21
PROVIDERS: PCP Family Medicine; Visit Provider Nurse Practitioner Psychiatric/Mental Health
DX: F11.21 Opioid dependence, in remission (principal)
CPT/HCPCS: 99213; J2315

== ENCOUNTER → 2022-09-14 15:21 | Outpatient (BNVA) | payer MEDICARE, MEDICAID, SELFPAY | PROVIDERS: PCP Family Medicine; Visit Provider Nurse Practitioner Psychiatric/Mental Health | DX: Z51.81 Encounter for therapeutic drug level monitoring (principal); F11.21 Opioid dependence, in remission | CPT/HCPCS: 80305; 96372; 99212 ==

== ENCOUNTER 2022-10-13 14:30 | Outpatient (AMB) | payer MEDICARE, MEDICAID, SELFPAY ==
--- NOTE | 2022-10-13 14:32 | A.OFFVIS_ITS ---
Intake Vital Signs 10/13/22 14:54 BP 122/84 Blood Pressure Location Lt radial Position Sitting Pulse 84 Pulse Source Pulse Oximeter Pulse Oximetry (%) 97 Oxygen Delivery Method Room Air Intake Visit Reasons: LUKASZ INJ Intake Note: the patient is here for a lukasz inj [employer] Attorney Required: No Allergies amoxicillin [AMOXICILLIN] Allergy (Mild, Verified 10/13/22 14:55) HIVES Penicillins [PENICILLINS] Allergy (Mild, Verified 10/13/22 14:55) HIVES Do you need a note to return to daycare/school/sports/work: No HPI LUKASZ INJ HPI Details Patient presents for follow-up and Vivitrol injection. Continues to do well with recovery, considering discontinuing injection. Discussed with patient agreeable to stretching out next injection 6 weeks and having p.o. naltrexone should he need it. Patient excited to share that he plans to pursue recovery coaching. [facility] Medical History Asthma Multiple sclerosis Opioid use disorder Social History Alcohol intake: never Substance Use Type: Opiates Review of Systems Const Reports as per HPI and Reports no additional complaints Physical Exam Vital Signs: Last Vital Signs Pulse 84 10/13/22 14:54 BP 122/84 10/13/22 14:54 Pulse Ox 97 10/13/22 14:54 Oxygen Delivery Method Room Air 10/13/22 14:54 Const General: cooperative, healthy appearing and alert Nutritional Appearance: average body habitus Orientation/consciousness: patient oriented x3 Limitations: no limitations Skin General skin exam: no rashes or lesions noted Neuro General: patient oriented x3 Psych Appearance: well kempt Mental Status: mental status grossly normal Speech and movement: Normal speech and movement present Affect: normal affect Attitude: cooperative Thought process: Normal thought process present Thought content: Normal thought content present Insight: Good insight present (Psych) Judgement: Good judgement present (Psych) Office Meds Vivitrol ER Performing Provider: Estrellita Anderson CNP Administered by: Marian Stahl RN on 10/13/22 15:10 Dose Route Admin Location Lot Number Expiration Date NDC Janitorial Tech 380 mg IM [id number] 01/19/25 45145-588-14 [employer] Comments: Previous inj site assessed, no warmth redness or swelling noted. Educated pt on s/sx of infection, encouraged to call [facility] with any questions. Pt damon inj well, needle blocked mult times and t/w had to reattempt x 3. Assessment & Plan Assessment & Plan (1) Opioid use disorder, severe, in sustained remission: Code(s): F11.21 - Opioid dependence, in remission Plan: * Tolerated injection * Follow-up 6 weeks * Relapse prevention discussion * Encouraged to call office should he need to be seen prior to his next scheduled appointment Orders: Orders AMB Naltrexone Injection Patient Supplied 10/13/22 F11.21 - Opioid dependence, in remission Coding Level of Care Code Est Pt Level 3 (34846) Diagnoses Opioid use disorder, severe, in sustained remission F11.21
[2022-10-13 14:54] VITALS: BP 122/84; PULSE 84; O2SAT 97
== END 2022-10-13 15:21 | disposition home or self-care (01) ==
LOC: HO.HCC 14:30
PROVIDERS: PCP Family Medicine; Visit Provider Nurse Practitioner Psychiatric/Mental Health
DX: F11.21 Opioid dependence, in remission (principal)
CPT/HCPCS: 99213; J2315

== ENCOUNTER → 2022-10-13 14:30 | Outpatient (BNVA) | payer MEDICARE, MEDICAID, SELFPAY | PROVIDERS: PCP Family Medicine; Visit Provider Nurse Practitioner Psychiatric/Mental Health | DX: Z51.81 Encounter for therapeutic drug level monitoring (principal); F11.21 Opioid dependence, in remission | CPT/HCPCS: 96372; 99212 ==

== ENCOUNTER 2022-12-02 14:53 | Outpatient (AMB) | payer MEDICARE, MEDICAID, SELFPAY ==
--- NOTE | 2022-12-02 15:04 | MHC.OFFVIS ---
Intake Intake Visit Reasons: LUKASZ INJ Allergies amoxicillin [AMOXICILLIN] Allergy (Mild, Verified 10/13/22 14:55) HIVES Penicillins [PENICILLINS] Allergy (Mild, Verified 10/13/22 14:55) HIVES PFSH Medical History Asthma Multiple sclerosis Opioid use disorder Social History Alcohol intake: never Substance Use Type: Opiates Coding
[2022-12-02 15:05] VITALS: BP 122/84; PULSE 94; O2SAT 97
--- NOTE | 2022-12-12 11:25 | A.OFFVIS_ITS ---
Intake Vital Signs 12/02/22 15:05 BP 122/84 Blood Pressure Location Lt radial Position Sitting Pulse 94 Pulse Source Pulse Oximeter Pulse Oximetry (%) 97 Oxygen Delivery Method Room Air Intake Visit Reasons: MAT Visit Allergies amoxicillin [AMOXICILLIN] Allergy (Mild, Verified 12/02/22 15:06) HIVES Penicillins [PENICILLINS] Allergy (Mild, Verified 12/02/22 15:06) HIVES HPI MAT Visit HPI Details Patient presents for follow up Last injection received 6 weeks ago Reporting that he is doing well with recovery Feels very supported Wishes to continue deferring his injection at this time [facility] Medical History Asthma Multiple sclerosis Opioid use disorder Social History Alcohol intake: never Substance Use Type: Opiates Review of Systems Const Reports as per HPI and Reports no additional complaints Physical Exam Vital Signs: Last Vital Signs Pulse 94 12/02/22 15:05 BP 122/84 12/02/22 15:05 Pulse Ox 97 12/02/22 15:05 Oxygen Delivery Method Room Air 12/02/22 15:05 Const General: cooperative, healthy appearing and alert Nutritional Appearance: average body habitus Orientation/consciousness: patient oriented x3 Limitations: no limitations Skin General skin exam: no rashes or lesions noted Neuro General: patient oriented x3 Psych Appearance: well kempt Mental Status: mental status grossly normal Speech and movement: Normal speech and movement present Affect: normal affect Attitude: cooperative Thought process: Normal thought process present Thought content: Normal thought content present Insight: Good insight present (Psych) Judgement: Good judgement present (Psych) Assessment & Plan Assessment & Plan (1) Opioid use disorder, severe, in sustained remission: Code(s): F11.21 - Opioid dependence, in remission Plan: * follow up 2 months * encouraged to call office prior to next appt if necessary Coding Level of Care Code Est Pt Level 3 (91425) Diagnoses Opioid use disorder, severe, in sustained remission F11.21
== END 2022-12-02 15:30 | disposition home or self-care (01) ==
PROVIDERS: PCP Family Medicine; Visit Provider Nurse Practitioner Family
DX: F11.21 Opioid dependence, in remission (principal)
CPT/HCPCS: 99213

== ENCOUNTER → 2022-12-02 14:53 | Outpatient (BNVA) | payer MEDICARE, MEDICAID, SELFPAY | PROVIDERS: PCP Family Medicine | DX: Z51.81 Encounter for therapeutic drug level monitoring (principal); F11.21 Opioid dependence, in remission | CPT/HCPCS: 99212 ==

== ENCOUNTER → 2023-01-17 14:31 | Outpatient (BNVA) | payer MEDICARE, MEDICAID, SELFPAY | PROVIDERS: PCP Family Medicine; Visit Provider Nurse Practitioner Psychiatric/Mental Health | DX: F11.21 Opioid dependence, in remission (principal); Z51.81 Encounter for therapeutic drug level monitoring; Z79.899 Other long term (current) drug therapy | CPT/HCPCS: 99212 ==

== ENCOUNTER 2023-01-17 14:55 | Outpatient (AMB) | payer MEDICARE, MEDICAID, SELFPAY ==
[2023-01-17 14:41] VITALS: BP 110/74; PULSE 70; O2SAT 97
--- NOTE | 2023-01-17 14:41 | A.OFFVIS_ITS ---
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 Reports he has not had any cravings. Has been smoking marijuana for harm reduction. Had a good Thanksgiving with his family. Has not been taking his naltrexone- he asked for it to be discontinued. He feels as though he has been doing well without it and would like to continue. Has no other concerns today [facility] Medical History Asthma Multiple sclerosis Opioid use disorder Social History Alcohol intake: never Comment: Decreased anxiety Substance Use Type: Opiates Review of Systems Const Reports as per HPI Physical Exam Vital Signs: Last Vital Signs Pulse 70 01/17/23 14:41 BP 110/74 01/17/23 14:41 Pulse Ox 97 01/17/23 14:41 Oxygen Delivery Method Room Air 01/17/23 14:41 Const General: cooperative and healthy appearing Resp Effort & Inspection: normal respiratory effort Skin General skin exam: no rashes or lesions noted Psych Appearance: grossly normal and well kempt Mental Status: mental status grossly normal Speech and movement: Normal speech and movement present Affect: normal affect Attitude: cooperative Insight: Good insight present (Psych) Judgement: Good judgement present (Psych) Assessment & Plan Assessment & Plan (1) Opioid use disorder, severe, in sustained remission: Code(s): F11.21 - Opioid dependence, in remission Plan: Naltrexone discontinued per patient request Relapse prevention discussed Harm reduction discussed Follow up 6 weeks Medications: Discontinued naltrexone Discontinued Reason: Patient no longer taking 50 mg PO DAILY 30 tabs 0RF Coding Level of Care Code Est Pt Level 3 (95086) Diagnoses Opioid use disorder, severe, in sustained remission F11.21
== END 2023-01-17 16:06 | disposition home or self-care (01) ==
PROVIDERS: PCP Family Medicine; Visit Provider Nurse Practitioner Psychiatric/Mental Health
DX: F11.21 Opioid dependence, in remission (principal)
CPT/HCPCS: 99213